=== PATIENT | male | born 1970 | race Caucasian/White ===

== ENCOUNTER 2022-06-29 16:12 | Observation (INO) | payer OTHER ==
[2022-06-29] MEDS ORDERED: Sodium Chloride 0.9% 1000 ML 1,000 ML IV STA (16:39)
[2022-06-29] MEDS ORDERED: Ativan 2 MG/1 ML VIAL IV ONE (16:39)
[2022-06-29] MEDS ORDERED: Zofran 4 MG/2 ML VIAL IV ONE (16:43)
[2022-06-29] MEDS ORDERED: Zofran 4 MG/2 ML VIAL ONE (16:52)
[2022-06-29] MEDS ORDERED: Ativan 2 MG/1 ML VIAL ONE (16:53)
[2022-06-29] MEDS ORDERED: Sodium Chloride 0.9% 1000 ML 1,000 ML ONE (16:53)
--- NOTE | 2022-06-29 17:09 | ERPHSYRPT ---
- History of Present Illness Time Seen by Provider: 06/29/22 16:16 Historian: patient Exam Limitations: no limitations Patient Subjective Stated Complaint: Swelling Triage Nursing Assessment: Patient brought into ED per EMS and transferred self to bed. Patient A+O X.3 Patient's skin pink, warm and dry. Patient's called EMS due to confusion, paranoia and swelling to BLE. Patient denies pain or discomfort. Patient has swelling to dre hands and BLE. Physician History: Patient originally called EMS today for meth use with chest pain. Admits to using meth this morning. Patient complained of chest pain, swelling to his . Therefore, EMS called. On my questioning, he does appear acutely confused. He intermittently answers questions correctly. He is alert and oriented once redirected. But easily spaces off. Most of history is provided by his . Timing/Duration: today Activities at Onset: other (Meth use) Quality: dullness Location: central Chest Pain Radiation: no radiation Severity of Pain-Max: mild Severity of Pain-Current: mild Modifying Factors: Improves With: nothing Associated Symptoms: palpitations Prior Chest Pain/Cardiac Workup: no prior chest pain Aspirin Treatment Today: no aspirin today Allergies/Adverse Reactions: Penicillins Allergy (Verified 06/29/22 16:20) Home Medications: Atorvastatin Calcium [Lipitor] 40 mg PO DAILY 01/07/13 [History] Clonazepam [Klonopin] 1 mg PO TID 01/07/13 [History] Diltiazem HCl Cd [Cardizem CD 120 MG] 120 mg PO DAILY 01/07/13 [History] Tizanidine HCl 4 mg [Zanaflex 4 MG] 4 mg PO TID PRN 01/07/13 [History] Diclofenac Sodium 75 mg PO DAILY 02/03/15 [History] Furosemide [Lasix] 80 mg PO DAILY 02/03/15 [History] Gabapentin [Neurontin 400 MG] 400 mg PO BID 02/03/15 [History] Hydrocodone/APAP 10/325 mg [Whitmer 10/325 MG Tablet] 1 tab PO Q4-6HPRN PRN 02/03/15 [History] Naproxen Sodium 500 mg PO PRN 02/03/15 [History] Potassium Chloride Tab* [Klor Con 10 MEQ] 10 meq PO DAILY 02/03/15 [History] Zolpidem Tartrate 10 mg PO 02/03/15 [History] Hx Tetanus, Diphtheria Vaccination/Date Given: Yes (2009) Hx Influenza Vaccination/Date Given: No Hx Pneumococcal Vaccination/Date Given: No Immunizations Up to Date: Yes Travel Risk - International Travel Have you traveled outside of the country in past 3 weeks: No - Coronavirus Screening Are you exhibiting any of the following symptoms?: No Close contact with a COVID-19 positive Pt in past 14-21 Days: No - Vaccine Status Have you recieved a Covid-19 vaccination: Yes 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: [employer] - Review of Systems Constitutional: No Fever, No Chills Eyes: No Symptoms Ears, Nose, & Throat: No Symptoms Respiratory: No Cough, No Dyspnea Cardiac: Chest Pain (Swelling of the legs, 2+ edema lower extremities), No Edema, No Syncope Abdominal/Gastrointestinal: No Abdominal Pain, No Nausea, No Vomiting, No Diarrhea Genitourinary Symptoms: No Dysuria Musculoskeletal: No Back Pain, No Neck Pain Skin: No Rash Neurological: No Dizziness, No Focal Weakness, No Sensory Changes Psychological: No Symptoms Endocrine: No Symptoms All Other Systems: Reviewed and Negative - Past Medical History Pertinent Past Medical History: Yes Neurological History: No Pertinent History ENT History: No Pertinent History Cardiac History: Congestive Heart Failure, High Cholesterol, Hypertension Respiratory History: No Pertinent History Endocrine Medical History: No Pertinent History Musculoskeletal History: Degenerative Disk Disease GI Medical History: Other History: Other Psycho-Social History: Anxiety Other Medical History: SKIN CANCER - Past Surgical History Past Surgical History: Yes Neuro Surgical History: No Pertinent History Cardiac: No Pertinent History Respiratory: No Pertinent History Genitourinary: Other Musculoskeletal: No Pertinent History Male Surgical History: No Pertinent History Other Surgical History: cancer left arm - Social History Smoking Status: Never smoker Exposure to second hand smoke: Yes Drug Use: methamphetamines Patient Lives Alone: No - Nursing Vital Signs Nursing Vital Signs: Initial Vital Signs Temperature 98.5 F 06/29/22 16:21 Pulse Rate 108 H 06/29/22 16:21 Respiratory Rate 20 06/29/22 16:21 Blood Pressure 145/96 06/29/22 16:21 O2 Sat by Pulse Oximetry 98 06/29/22 16:21 Pain Scale Pain Intensity 0 - Physical Exam General Appearance: no apparent distress, alert, other (Patient alert but appears to have acute delirium. He is redirectable, answers questions upon redirection.) Eye Exam: PERRL/EOMI, eyes nml inspection Ears, Nose, Throat Exam: normal ENT inspection, moist mucous membranes Neck Exam: normal inspection, non-tender, supple, full range of motion Respiratory Exam: normal breath sounds, lungs clear, No respiratory distress Cardiovascular Exam: regular rate/rhythm, normal heart sounds Gastrointestinal/Abdomen Exam: soft, No tenderness, No mass Back Exam: normal inspection, No CVA tenderness, No vertebral tenderness Extremity Exam: normal inspection, normal range of motion, pedal edema (2+ pitting edema lower extremities) Neurologic Exam: alert, oriented x 3, cooperative, normal mood/affect, sensation nml, No motor deficits Skin Exam: normal color, warm, dry SpO2: 98 - Course Nursing assessment & vital signs reviewed: Yes EKG Interpreted by Me: Sinus Rhythm Ordered Tests: Active Orders 24 hr Category Date Time Status EKG-ER Only STAT Care 06/29/22 16:39 Active IV Insertion STAT Care 06/29/22 16:39 Active CHEST 1 VIEW (PORTABLE) Stat Exams 06/29/22 16:42 Taken HEAD WITHOUT CONTRAST [CT] Stat Exams 06/29/22 17:41 Taken ACETAMINOPHEN Stat Lab 06/29/22 17:12 Completed CBC W DIFF Stat Lab 06/29/22 17:10 Completed CK-Creatinine Phosphokinase Stat Lab 06/29/22 17:12 Completed CMP Stat Lab 06/29/22 17:10 Completed ETHYL ALCOHOL Stat Lab 06/29/22 17:10 Completed FLU A/B + COVID ANTIGEN Stat Lab 06/29/22 17:41 Ordered LIPASE Stat Lab 06/29/22 17:10 Completed MAGNESIUM Stat Lab 06/29/22 17:10 Completed NT PRO BNP Stat Lab 06/29/22 17:10 Completed SALICYLATE Stat Lab 06/29/22 17:12 Completed TROPONIN Q4H Lab 06/29/22 17:10 Completed TROPONIN Q4H Lab 06/29/22 20:45 Ordered TROPONIN Q4H Lab 06/30/22 00:45 Ordered UA W/RFX CULTURE Stat Lab 06/29/22 16:59 Completed Urine Triage Profile Stat Lab 06/29/22 16:50 Completed Medication Summary Discontinued Medications Generic Name Dose Route Start Last Admin Trade Name Freq PRN Reason Stop Dose Admin Sodium Chloride 1,000 mls @ 999 mls/hr 06/29/22 16:39 06/29/22 18:09 Sodium Chloride 0.9% 1000 Ml IV 06/29/22 17:39 Infused .Q1H1M STA Infusion Sodium Chloride Confirm 06/29/22 16:53 Sodium Chloride 0.9% 1000 Ml Administered 06/29/22 16:54 Dose 1,000 mls @ ud .ROUTE .STK-MED ONE Lorazepam 2 mg 06/29/22 16:39 06/29/22 16:54 Lorazepam 2 Mg/1 Ml 2 Mg Vial IV 06/29/22 16:40 2 mg STAT ONE Administration Lorazepam Confirm 06/29/22 16:53 Lorazepam 2 Mg/1 Ml 2 Mg Vial Administered 06/29/22 16:54 Dose 2 mg .ROUTE .STK-MED ONE Ondansetron HCl 8 mg 06/29/22 16:43 06/29/22 16:54 Ondansetron Hcl 4 Mg/2 Ml Vial IV 06/29/22 16:44 8 mg STAT ONE Administration Ondansetron HCl Confirm 06/29/22 16:52 Ondansetron Hcl 4 Mg/2 Ml Vial Administered 06/29/22 16:53 Dose 8 mg .ROUTE .STK-MED ONE Lab/Rad Data: Laboratory Result Diagrams 06/29/22 17:10 06/29/22 17:10 Laboratory Results 06/29/22 06/29/22 06/29/22 Range/Units 17:12 17:10 17:10 WBC (4.0-10.5) x10^3/uL RBC (4.1-5.6) x10^6/uL Hgb (12.5-18.0) g/dL Hct (42-50) % MCV (78-100) fL MCH (26-32) pg MCHC (32-36) g/dL RDW (11.5-14.0) % Plt Count (150-450) x10^3/uL MPV (7.5-11.0) fL Gran % (36.0-66.0) % Immature Gran % (Auto) (0.00-0.4) % Nucleat RBC Rel Count (0.00-0.1) % Eos # (Auto) (0-0.5) x10^3/uL Immature Gran # (Auto) (0.00-0.03) x10^3u/L Absolute Lymphs (auto) (1.0-4.6) x10^3/uL Absolute Monos (auto) (0.0-1.3) x10^3/uL Absolute Nucleated RBC (0.00-0.01) x10^3u/L Lymphocytes % (24.0-44.0) % Monocytes % (0.0-12.0) % Eosinophils % (0.00-5.0) % Basophils % (0.0-0.4) % Absolute Granulocytes (1.4-6.9) x10^3/uL Basophils # (0-0.4) x10^3/uL Sodium (137-145) mmol/L Potassium (3.5-5.1) mmol/L Chloride (98-107) mmol/L Carbon Dioxide (22-30) mmol/L Anion Gap (5-15) MEQ/L BUN (9-20) mg/dL Creatinine (0.66-1.25) mg/dL Estimated GFR ML/MIN Glucose (74-106) mg/dL Calcium (8.4-10.2) mg/dL Magnesium (1.6-2.3) mg/dL Total Bilirubin (0.2-1.3) mg/dL AST (17-59) U/L ALT (0-50) U/L Alkaline Phosphatase (38-126) U/L Ammonia 21 (9-30) umol/L Creatine Kinase 1052 H (55-170) U/L Troponin I 0.017 (0.000-0.034) ng/mL NT-Pro-B Natriuret Pep (0-900) pg/mL Serum Total Protein (6.3-8.2) g/dL Albumin (3.5-5.0) g/dL Lipase (23-300) U/L Urinalys Dipstick Clnc Urine Color (YELLOW) Urine Appearance (CLEAR) Urine pH (5-6) Ur Specific [place] (1.005-1.025) POC Urine Protein Conf (Negative) Urine Ketones (NEGATIVE) Urine Nitrite (NEGATIVE) Urine Bilirubin (NEGATIVE) Urine Urobilinogen (0-1) mg/dL Urine Leukocytes (NEGATIVE) Urine WBC (Auto) (0-5) /HPF Urine RBC (Auto) (0-2) /HPF U Epithel Cells (Auto) (FEW) /HPF Urine Bacteria (Auto) (NEGATIVE) /HPF Urine RBC (0-5) Lebron/ul Urine Mucus (Auto) (NEGATIVE) /HPF Ur Culture Indicated? Urine Glucose (NEGATIVE) mg/dL Salicylates < 1.0 L (2-20) mg/dL Urine Opiates Level (NEGATIVE) Ur Methadone (NEGATIVE) Acetaminophen < 10 L (10-30) ug/ml Urine Barbiturates (NEGATIVE) Ur Phencyclidine (PCP) (NEGATIVE) Urine Amphetamine (NEGATIVE) U Benzodiazepine Level (NEGATIVE) Urine Marijuana (THC) (NEGATIVE) Ethyl Alcohol (0-10) mg/dL 06/29/22 06/29/22 06/29/22 Range/Units 17:10 17:10 16:59 WBC 9.1 (4.0-10.5) x10^3/uL RBC 4.39 (4.1-5.6) x10^6/uL Hgb 12.8 (12.5-18.0) g/dL Hct 38.9 L (42-50) % MCV 88.6 (78-100) fL MCH 29.2 (26-32) pg MCHC 32.9 (32-36) g/dL RDW 13.1 (11.5-14.0) % Plt Count 335 (150-450) x10^3/uL MPV 9.3 (7.5-11.0) fL Gran % 72.8 H (36.0-66.0) % Immature Gran % (Auto) 0.3 (0.00-0.4) % Nucleat RBC Rel Count 0.0 (0.00-0.1) % Eos # (Auto) 0.13 (0-0.5) x10^3/uL Immature Gran # (Auto) 0.03 (0.00-0.03) x10^3u/L Absolute Lymphs (auto) 1.27 (1.0-4.6) x10^3/uL Absolute Monos (auto) 0.99 (0.0-1.3) x10^3/uL Absolute Nucleated RBC 0.00 (0.00-0.01) x10^3u/L Lymphocytes % 13.9 L (24.0-44.0) % Monocytes % 10.9 (0.0-12.0) % Eosinophils % 1.4 (0.00-5.0) % Basophils % 0.7 (0.0-0.4) % Absolute Granulocytes 6.63 (1.4-6.9) x10^3/uL Basophils # 0.06 (0-0.4) x10^3/uL Sodium 138 (137-145) mmol/L Potassium 3.8 (3.5-5.1) mmol/L Chloride 103 (98-107) mmol/L Carbon Dioxide 26 (22-30) mmol/L Anion Gap 12.6 (5-15) MEQ/L BUN 16 (9-20) mg/dL Creatinine 1.27 H (0.66-1.25) mg/dL Estimated GFR > 60.0 ML/MIN Glucose 112 H (74-106) mg/dL Calcium 9.4 (8.4-10.2) mg/dL Magnesium 2.2 (1.6-2.3) mg/dL Total Bilirubin 0.60 (0.2-1.3) mg/dL AST 45 (17-59) U/L ALT 36 (0-50) U/L Alkaline Phosphatase 75 (38-126) U/L Ammonia (9-30) umol/L Creatine Kinase (55-170) U/L Troponin I (0.000-0.034) ng/mL NT-Pro-B Natriuret Pep 236 (0-900) pg/mL Serum Total Protein 7.5 (6.3-8.2) g/dL Albumin 4.3 (3.5-5.0) g/dL Lipase 43 (23-300) U/L Urinalys Dipstick Clnc MAIN LAB Urine Color YELLOW (YELLOW) Urine Appearance CLEAR (CLEAR) Urine pH 5.5 (5-6) Ur Specific [place] >=1.030 (1.005-1.025) POC Urine Protein Conf 30 (Negative) Urine Ketones NEGATIVE (NEGATIVE) Urine Nitrite NEGATIVE (NEGATIVE) Urine Bilirubin NEGATIVE (NEGATIVE) Urine Urobilinogen 0.2 (0-1) mg/dL Urine Leukocytes NEGATIVE (NEGATIVE) Urine WBC (Auto) 0-2 (0-5) /HPF Urine RBC (Auto) NONE (0-2) /HPF U Epithel Cells (Auto) NONE (FEW) /HPF Urine Bacteria (Auto) NONE (NEGATIVE) /HPF Urine RBC NEGATIVE (0-5) Lebron/ul Urine Mucus (Auto) SLIGHT (NEGATIVE) /HPF Ur Culture Indicated? NO Urine Glucose NEGATIVE (NEGATIVE) mg/dL Salicylates (2-20) mg/dL Urine Opiates Level (NEGATIVE) Ur Methadone (NEGATIVE) Acetaminophen (10-30) ug/ml Urine Barbiturates (NEGATIVE) Ur Phencyclidine (PCP) (NEGATIVE) Urine Amphetamine (NEGATIVE) U Benzodiazepine Level (NEGATIVE) Urine Marijuana (THC) (NEGATIVE) Ethyl Alcohol < 10 (0-10) mg/dL 06/29/22 Range/Units 16:50 WBC (4.0-10.5) x10^3/uL RBC (4.1-5.6) x10^6/uL Hgb (12.5-18.0) g/dL Hct (42-50) % MCV (78-100) fL MCH (26-32) pg MCHC (32-36) g/dL RDW (11.5-14.0) % Plt Count (150-450) x10^3/uL MPV (7.5-11.0) fL Gran % (36.0-66.0) % Immature Gran % (Auto) (0.00-0.4) % Nucleat RBC Rel Count (0.00-0.1) % Eos # (Auto) (0-0.5) x10^3/uL Immature Gran # (Auto) (0.00-0.03) x10^3u/L Absolute Lymphs (auto) (1.0-4.6) x10^3/uL Absolute Monos (auto) (0.0-1.3) x10^3/uL Absolute Nucleated RBC (0.00-0.01) x10^3u/L Lymphocytes % (24.0-44.0) % Monocytes % (0.0-12.0) % Eosinophils % (0.00-5.0) % Basophils % (0.0-0.4) % Absolute Granulocytes (1.4-6.9) x10^3/uL Basophils # (0-0.4) x10^3/uL Sodium (137-145) mmol/L Potassium (3.5-5.1) mmol/L Chloride (98-107) mmol/L Carbon Dioxide (22-30) mmol/L Anion Gap (5-15) MEQ/L BUN (9-20) mg/dL Creatinine (0.66-1.25) mg/dL Estimated GFR ML/MIN Glucose (74-106) mg/dL Calcium (8.4-10.2) mg/dL Magnesium (1.6-2.3) mg/dL Total Bilirubin (0.2-1.3) mg/dL AST (17-59) U/L ALT (0-50) U/L Alkaline Phosphatase (38-126) U/L Ammonia (9-30) umol/L Creatine Kinase (55-170) U/L Troponin I (0.000-0.034) ng/mL NT-Pro-B Natriuret Pep (0-900) pg/mL Serum Total Protein (6.3-8.2) g/dL Albumin (3.5-5.0) g/dL Lipase (23-300) U/L Urinalys Dipstick Clnc Urine Color (YELLOW) Urine Appearance (CLEAR) Urine pH (5-6) Ur Specific [place] (1.005-1.025) POC Urine Protein Conf (Negative) Urine Ketones (NEGATIVE) Urine Nitrite (NEGATIVE) Urine Bilirubin (NEGATIVE) Urine Urobilinogen (0-1) mg/dL Urine Leukocytes (NEGATIVE) Urine WBC (Auto) (0-5) /HPF Urine RBC (Auto) (0-2) /HPF U Epithel Cells (Auto) (FEW) /HPF Urine Bacteria (Auto) (NEGATIVE) /HPF Urine RBC (0-5) Lebron/ul Urine Mucus (Auto) (NEGATIVE) /HPF Ur Culture Indicated? Urine Glucose (NEGATIVE) mg/dL Salicylates (2-20) mg/dL Urine Opiates Level NEGATIVE (NEGATIVE) Ur Methadone NEGATIVE (NEGATIVE) Acetaminophen (10-30) ug/ml Urine Barbiturates NEGATIVE (NEGATIVE) Ur Phencyclidine (PCP) NEGATIVE (NEGATIVE) Urine Amphetamine POSITIVE (NEGATIVE) U Benzodiazepine Level NEGATIVE (NEGATIVE) Urine Marijuana (THC) NEGATIVE (NEGATIVE) Ethyl Alcohol (0-10) mg/dL - Progress Progress: improved Air Movement: good Progress Note: 06/29/22 17:08 Plan for full work-up here. This will include basic labs, chest x-ray, IV Ativan. Will obtain EKG, troponin. Will consider head CT, CTA chest abdomen pelvis looking for dissection given his meth use, acute delirium. 06/29/22 18:19 Handoff of care to Dr. Contreras. He will follow-up on all lab reports, reexamine the patient, appropriate disposition per these results. Patient most likely need a head CT follow-up and admission to the hospital. This is for his delirium. - Departure Departure Disposition: Observation Clinical Impression: Acute delirium Condition: Good Critical Care Time: No Referrals: DIAZ RAMIREZ [Primary Care Provider] - Follow up/PCP as directed
[2022-06-29 17:16] LABS: Absolute Neutrophil Ct (ANC) 6.63 x10^3/uL (1.4-6.9); Basophil (Absolute #) 0.06 x10^3/uL (0-0.4); Eosinophil % 1.4 % (0.00-5.0); Eosinophil (Absolute #) 0.13 x10^3/uL (0-0.5); Hematocrit 38.9 % (42-50); Hemoglobin 12.8 g/dL (12.5-18.0); Lymphocyte (Absolute #) 1.27 x10^3/uL (1.0-4.6); Lymphocytes % 13.9 % (24.0-44.0); Mean Cell Volume 88.6 fL (78-100); Mean Corpuscular Hemoglobin 29.2 pg (26-32); Mean Corpuscular Hgb Concent. 32.9 g/dL (32-36); Mean Platelet Volume 9.3 fL (7.5-11.0); Monocyte (Absolute #) 0.99 x10^3/uL (0.0-1.3); Monocytes % 10.9 % (0.0-12.0); Neutrophil % 72.8 % (36.0-66.0); Platelet Count 335 x10^3/uL (150-450); Red Blood Count 4.39 x10^6/uL (4.1-5.6); Red Cell Distribution Width 13.1 % (11.5-14.0); White Blood Count 9.1 x10^3/uL (4.0-10.5)
[2022-06-29 17:24] LABS: Mucus SLIGHT /HPF (NEGATIVE); WBC 0-2 /HPF (0-5)
[2022-06-29 17:25] LABS: Appearance CLEAR (CLEAR); Bilirubin NEGATIVE (NEGATIVE); Dipstick done @ ? MAIN LAB; Glucose NEGATIVE (NEGATIVE); Ketones NEGATIVE (NEGATIVE); Nitrite NEGATIVE (NEGATIVE); Ph 5.5 (5-6); Protein,Urine Dip 30 (Negative); RBC NEGATIVE Ery/ul (0-5); Specific Gravity >=1.030 (1.005-1.025); Urobilinogen 0.2 mg/dL (0-1)
[2022-06-29 17:26] LABS: Urine Cultured Indicated? NO
[2022-06-29 17:28] LABS: ACETAMINOPHEN < 10 ug/ml (10-30); CK-Creatinine Phosphokinase 1052 U/L (55-170); SALICYLATE < 1.0 mg/dL (2-20)
[2022-06-29 17:31] LABS: ALBUMIN 4.3 g/dL (3.5-5.0); ALKALINE PHOSPHATASE 75 U/L (38-126); ANION GAP 12.6 MEQ/L (5-15); BLOOD UREA NITROGEN 16 mg/dL (9-20); CHLORIDE 103 mmol/L (98-107); Calcium 9.4 mg/dL (8.4-10.2); Carbon Dioxide 26 mmol/L (22-30); Creatinine 1 1.27 mg/dL (0.66-1.25); EST GLOMERULAR FILTRATION RATE > 60.0 ML/MIN; ETHYL ALCOHOL < 10 mg/dL (0-10); Glucose 112 mg/dL (74-106); LIPASE 43 U/L (23-300); MAGNESIUM 2.2 mg/dL (1.6-2.3); NT PRO BNP 236 pg/mL (0-900); Potassium 3.8 mmol/L (3.5-5.1); SGOT/AST 45 U/L (17-59); SGPT/ALT 36 U/L (0-50); SODIUM 138 mmol/L (137-145); Total Protein 7.5 g/dL (6.3-8.2)
[2022-06-29 17:35] LABS: Barbiturate,Urine NEGATIVE (NEGATIVE); Benzodiazepine,Urine NEGATIVE (NEGATIVE); Methadone,Urine NEGATIVE (NEGATIVE); Opiate,Urine NEGATIVE (NEGATIVE); PCP,Urine NEGATIVE (NEGATIVE); THC,Urine NEGATIVE (NEGATIVE)
[2022-06-29 18:04] LABS: Amphetamine,Urine POSITIVE (NEGATIVE)
--- NOTE | 2022-06-29 20:45 | XRAY ---
Indication: Chest pain and swelling in extremities. History Parkinson's and CHF. Comparison: February 03, 2015 Portable chest remains clear. Heart not enlarged. Bony thorax intact. No new/acute findings.
--- NOTE | 2022-06-29 20:47 | XRAY ---
Indication: Bilateral lower extremity edema. DVT. 2-dimensional sonogram and color Doppler imaging of the deep venous vessels of the left and right leg performed. Comparison: None No thrombus seen in the examined deep venous vessels of the left and right leg including greater saphenous vein. Veins demonstrate normal compressibility. Venous waveforms are normal with and without augmentation. Impression: Left and right legs negative for DVT. Comment: Preliminary report was given.
--- NOTE | 2022-06-29 20:47 | XRAY ---
Indication: Acute delirium and chest pain after using drugs. Multiple contiguous axial images obtained through the head without contrast. Comparison: None Normal appearing brain parenchyma, ventricles, and bony calvarium for patient's age. Paranasal sinuses and mastoid air cells are clear. Impression: Normal CT head without contrast exam. Comment: Preliminary interpretation made by [facility]. No critical discrepancy.
[2022-06-29] MEDS ORDERED: HUMULIN R SQ PRN (21:56)
[2022-06-29] MEDS ORDERED: DUONEB 0.5-3 MG/3 ml Neb IH PRN (21:56)
[2022-06-29] MEDS ORDERED: Zofran 4 MG/2 ML VIAL IV PRN (21:56)
[2022-06-29] MEDS ORDERED: TYLENOL 325 MG PO PRN (21:56)
[2022-06-29] MEDS: Sodium Chloride 0.9% 1000 ML 1,000 ML IV SCH (23:03)
[2022-06-29] MEDS: Pepcid 20 MG VIAL IV SCH (23:12)
[2022-06-30] MEDS: Sodium Chloride 0.9% 1000 ML 1,000 ML IV SCH ×5 (02:51→15:38)
[2022-06-30 05:03] LABS: Absolute Neutrophil Ct (ANC) 3.34 x10^3/uL (1.4-6.9); Basophil (Absolute #) 0.04 x10^3/uL (0-0.4); Eosinophil % 4.2 % (0.00-5.0); Eosinophil (Absolute #) 0.23 x10^3/uL (0-0.5); Hematocrit 37.8 % (42-50); Hemoglobin 11.9 g/dL (12.5-18.0); Lymphocytes % 21.9 % (24.0-44.0); Mean Cell Volume 91.3 fL (78-100); Mean Corpuscular Hemoglobin 28.7 pg (26-32); Mean Corpuscular Hgb Concent. 31.5 g/dL (32-36); Mean Platelet Volume 9.3 fL (7.5-11.0); Monocyte (Absolute #) 0.65 x10^3/uL (0.0-1.3); Monocytes % 11.9 % (0.0-12.0); Neutrophil % 61.1 % (36.0-66.0); Platelet Count 243 x10^3/uL (150-450); Red Blood Count 4.14 x10^6/uL (4.1-5.6); Red Cell Distribution Width 13.2 % (11.5-14.0); White Blood Count 5.5 x10^3/uL (4.0-10.5)
[2022-06-30 05:32] LABS: ALBUMIN 3.3 g/dL (3.5-5.0); ALKALINE PHOSPHATASE 57 U/L (38-126); ANION GAP 6.3 MEQ/L (5-15); BLOOD UREA NITROGEN 15 mg/dL (9-20); CHLORIDE 107 mmol/L (98-107); Calcium 8.5 mg/dL (8.4-10.2); Carbon Dioxide 29 mmol/L (22-30); Creatinine 1 1.21 mg/dL (0.66-1.25); EST GLOMERULAR FILTRATION RATE > 60.0 ML/MIN; Glucose 91 mg/dL (74-106); SGOT/AST 39 U/L (17-59); SGPT/ALT 33 U/L (0-50); SODIUM 138 mmol/L (137-145); Total Protein 6.1 g/dL (6.3-8.2)
[2022-06-30] MEDS: Pepcid 20 MG VIAL IV SCH ×2 (10:45→21:29)
[2022-06-30] MEDS ORDERED: Cyclobenzaprine 10 MG PO PRN (12:35)
[2022-06-30] MEDS ORDERED: Cardizem CD PO SCH (13:00)
[2022-06-30] MEDS ORDERED: Lasix 40 MG PO SCH (13:00)
[2022-06-30] MEDS ORDERED: MAG-OX 400 PO SCH (13:00)
[2022-06-30] MEDS: Aldactone 25 MG PO SCH (14:04)
[2022-06-30] MEDS ORDERED: ULTRAM 50 MG PO PRN (14:05)
[2022-06-30] MEDS ORDERED: Klor Con PO SCH (15:00)
[2022-06-30] MEDS: Lasix 40 MG/4 ML IV SCH (15:00)
[2022-06-30] MEDS: Klor Con PO SCH ×2 (15:38→21:23)
[2022-06-30] MEDS: ENOXAPARIN SODIUM SQ SCH (15:38)
--- NOTE | 2022-06-30 16:24 | PCM.HP ---
History of Present Illness - Chief Complaint Chief Complaint: ACUTE DELIRIUM History of Present Illness: is a 51 year old male pt (hx seeing Dr. Mathew) who was admitted through ER with chest pain and methamphetamine use. called EMS and pt was brought to ER with confusion, paranoia, an dBLE edema. in ER, he was alert and oriented after being redirected by staff. Pt cannot remember any of this. CT head normal, CXR normal, and venous doppler (LE) neg for DVT. Pt is currently alert and oriented. He is a poor historian. He is noncompliant with meds; says he takes the meds on his list only sometimes. He does c/o LE edema which is longstanding. Is complaining of testicular swelling and pain. Foot pain related the chronic LE edema. He has seen Dr. Vicente int he past, but didn't f/u. Tells RN he is not interested in sobriety, but his tells me they are not going to use meth anymore. Troponins were neg x 3. He c/o chest tightness currently, L&R chest, nonradiating, 04/26, intermittent. Occ palpitation. +N, +diaphoresis. Is worse when he is feeling irritated. Denies TOB, EtOH, or other drugs. - Review of Systems Constitutional: Weakness (in legs, new) Respiratory: Short Of Breath (> 1 yr) Abdominal/Gastrointestinal: Abdominal Pain (LLQ, recurrent) Neurological: Dizziness (lightheaded occ), Other (feels like the L side of his brain "shuts down" - makes it hard to think, he's wobbly and irritable. Denies dz or staring episodes.) Psychological: Depression, No Suicidal Ideations (had a suicide attempt 2 yrs ago. States an antidepressant made him worse. was on depakote in the past.) Medications & Allergies Home Medications: Home Medication List Furosemide [Lasix] 40 mg PO TID 02/03/15 [History Confirmed 06/29/22] Potassium Chloride Tab* [Klor Con 10 MEQ] 10 meq PO TID 02/03/15 [History Confirmed 06/29/22] Atorvastatin Calcium 20 mg PO HS 06/29/22 [History Confirmed 06/29/22] Cyclobenzaprine HCl 10 mg [Cyclobenzaprine 10 MG] 10 mg PO TIDPRN PRN 06/29/22 [History Confirmed 06/29/22] Magnesium Oxide 400 mg [Mag-Ox 400] 400 mg PO DAILY 06/29/22 [History Confirmed 06/29/22] Omeprazole 20 mg PO DAILY 06/29/22 [History Confirmed 06/29/22] Spironolactone 25 mg [Aldactone 25 MG] 25 mg PO BID 06/29/22 [History Confirmed 06/29/22] dilTIAZem HCl [Diltiazem 24Hr Cd] 240 mg PO DAILY 06/29/22 [History Confirmed 06/29/22] Allergies/Adverse Reactions: Allergies Allergy/AdvReac Type Severity Reaction Status Date / Time Penicillins Allergy Verified 06/29/22 16:20 - Past Medical History Past Medical History: Yes Neurological History: No Pertinent History ENT History: No Pertinent History Cardiac History: Congestive Heart Failure, High Cholesterol, Hypertension Respiratory History: No Pertinent History Endocrine Medical History: No Pertinent History Musculoskelatal History: Degenerative Disk Disease GI Medical History: Other History: Other Pyscho-Social History: Anxiety Male Reproductive Disorders: No Pertinent History Comment: SKIN CANCER - Past Surgical History Past Surgical History: Yes Neuro Surgical History: No Pertinent History Cardiac History: No Pertinent History Respiratory Surgery: No Pertinent History GI Surgical History: No Pertinent History Genitourinary Surgical Hx: Other Musculskeletal Surgical Hx: No Pertinent History Male Surgical History: No Pertinent History Other Surgical History: cancer left arm - Social History Smoking Status: Never smoker Exposure to second hand smoke: No Alcohol: None Drug Use: methamphetamines - Physical Exam Vital Signs: Vital Signs - 24 hr Temp Pulse Resp BP BP Pulse Ox 06/30/22 12:00 99.1 F 92 H 26 H 145/82 98 06/30/22 11:26 97 H 06/30/22 08:00 98.0 F 84 23 126/84 96 06/30/22 04:00 97.3 F 63 18 90/55 96 06/30/22 00:27 98.0 F 80 21 103/63 100 06/29/22 23:23 86 06/29/22 22:19 98.0 F 86 24 139/82 100 06/29/22 22:10 87 20 99 06/29/22 21:05 90 22 85/48 98 06/29/22 20:08 90 22 117/69 98 06/29/22 19:38 92 H 110/63 98 06/29/22 18:20 98 06/29/22 18:00 93 H 16 118/66 96 06/29/22 17:12 103 H 20 139/84 94 L 06/29/22 16:21 98.5 F 108 H 20 145/96 98 General Appearance: no apparent distress, alert Neurologic Exam: oriented x 3, cooperative Eye Exam: eyes nml inspection Ears, Nose, Throat Exam: moist mucous membranes Neck Exam: normal inspection, non-tender, No lymphadenopathy, No thyromegaly Respiratory Exam: normal breath sounds, lungs clear, other (chest nttp), No diminished breath sounds, No rhonchi, No wheezing Cardiovascular Exam: regular rate/rhythm, normal heart sounds, No murmur Gastrointestinal/Abdomen Exam: soft, normal bowel sounds, No tenderness, No distention, No mass, No guarding, No rebound Male Genitalia Exam: other (testicles are somewhat edematous bilat. There is an approx 3x4cm firm mass superior to L testicle, nttp, no erythema) Back Exam: normal inspection, No rash Extremity Exam: pedal edema, swelling (3+ pretibial edema) Skin Exam: normal color, warm, dry, No rash Results - Labs Lab/Micro Results: Lab Results-Last 24 Hours 06/29/22 06/29/22 06/29/22 Range/Units 16:50 16:59 17:10 WBC 9.1 (4.0-10.5) x10^3/uL RBC 4.39 (4.1-5.6) x10^6/uL Hgb 12.8 (12.5-18.0) g/dL Hct 38.9 L (42-50) % MCV 88.6 (78-100) fL MCH 29.2 (26-32) pg MCHC 32.9 (32-36) g/dL RDW 13.1 (11.5-14.0) % Plt Count 335 (150-450) x10^3/uL MPV 9.3 (7.5-11.0) fL Gran % 72.8 H (36.0-66.0) % Immature Gran % (Auto) 0.3 (0.00-0.4) % Nucleat RBC Rel Count 0.0 (0.00-0.1) % Eos # (Auto) 0.13 (0-0.5) x10^3/uL Immature Gran # (Auto) 0.03 (0.00-0.03) x10^3u/L Absolute Lymphs (auto) 1.27 (1.0-4.6) x10^3/uL Absolute Monos (auto) 0.99 (0.0-1.3) x10^3/uL Absolute Nucleated RBC 0.00 (0.00-0.01) x10^3u/L Lymphocytes % 13.9 L (24.0-44.0) % Monocytes % 10.9 (0.0-12.0) % Eosinophils % 1.4 (0.00-5.0) % Basophils % 0.7 (0.0-0.4) % Absolute Granulocytes 6.63 (1.4-6.9) x10^3/uL Basophils # 0.06 (0-0.4) x10^3/uL Sodium (137-145) mmol/L Potassium (3.5-5.1) mmol/L Chloride (98-107) mmol/L Carbon Dioxide (22-30) mmol/L Anion Gap (5-15) MEQ/L BUN (9-20) mg/dL Creatinine (0.66-1.25) mg/dL Estimated GFR ML/MIN Glucose (74-106) mg/dL POC Glucometer (74 to 106) mg/dL Hemoglobin A1c (4.5-6.0) % Lactic Acid (0.4-2.0) Calcium (8.4-10.2) mg/dL Magnesium (1.6-2.3) mg/dL Total Bilirubin (0.2-1.3) mg/dL AST (17-59) U/L ALT (0-50) U/L Alkaline Phosphatase (38-126) U/L Ammonia (9-30) umol/L Creatine Kinase (55-170) U/L Troponin I (0.000-0.034) ng/mL NT-Pro-B Natriuret Pep (0-900) pg/mL Serum Total Protein (6.3-8.2) g/dL Albumin (3.5-5.0) g/dL Lipase (23-300) U/L Urinalys Dipstick Clnc MAIN LAB Urine Color YELLOW (YELLOW) Urine Appearance CLEAR (CLEAR) Urine pH 5.5 (5-6) Ur Specific [place] >=1.030 (1.005-1.025) POC Urine Protein Conf 30 (Negative) Urine Ketones NEGATIVE (NEGATIVE) Urine Nitrite NEGATIVE (NEGATIVE) Urine Bilirubin NEGATIVE (NEGATIVE) Urine Urobilinogen 0.2 (0-1) mg/dL Urine Leukocytes NEGATIVE (NEGATIVE) Urine WBC (Auto) 0-2 (0-5) /HPF Urine RBC (Auto) NONE (0-2) /HPF U Epithel Cells (Auto) NONE (FEW) /HPF Urine Bacteria (Auto) NONE (NEGATIVE) /HPF Urine RBC NEGATIVE (0-5) Lebron/ul Urine Mucus (Auto) SLIGHT (NEGATIVE) /HPF Ur Culture Indicated? NO Urine Glucose NEGATIVE (NEGATIVE) mg/dL Salicylates (2-20) mg/dL Urine Opiates Level NEGATIVE (NEGATIVE) Ur Methadone NEGATIVE (NEGATIVE) Acetaminophen (10-30) ug/ml Urine Barbiturates NEGATIVE (NEGATIVE) Ur Phencyclidine (PCP) NEGATIVE (NEGATIVE) Urine Amphetamine POSITIVE (NEGATIVE) U Benzodiazepine Level NEGATIVE (NEGATIVE) Urine Marijuana (THC) NEGATIVE (NEGATIVE) Ethyl Alcohol (0-10) mg/dL Influenza Type A Ag (NEGATIVE) Influenza Type B Ag (NEGATIVE) SARS-CoV-2 Antigen (NEGATIVE) 06/29/22 06/29/22 06/29/22 Range/Units 17:10 17:10 17:10 WBC (4.0-10.5) x10^3/uL RBC (4.1-5.6) x10^6/uL Hgb (12.5-18.0) g/dL Hct (42-50) % MCV (78-100) fL MCH (26-32) pg MCHC (32-36) g/dL RDW (11.5-14.0) % Plt Count (150-450) x10^3/uL MPV (7.5-11.0) fL Gran % (36.0-66.0) % Immature Gran % (Auto) (0.00-0.4) % Nucleat RBC Rel Count (0.00-0.1) % Eos # (Auto) (0-0.5) x10^3/uL Immature Gran # (Auto) (0.00-0.03) x10^3u/L Absolute Lymphs (auto) (1.0-4.6) x10^3/uL Absolute Monos (auto) (0.0-1.3) x10^3/uL Absolute Nucleated RBC (0.00-0.01) x10^3u/L Lymphocytes % (24.0-44.0) % Monocytes % (0.0-12.0) % Eosinophils % (0.00-5.0) % Basophils % (0.0-0.4) % Absolute Granulocytes (1.4-6.9) x10^3/uL Basophils # (0-0.4) x10^3/uL Sodium 138 (137-145) mmol/L Potassium 3.8 (3.5-5.1) mmol/L Chloride 103 (98-107) mmol/L Carbon Dioxide 26 (22-30) mmol/L Anion Gap 12.6 (5-15) MEQ/L BUN 16 (9-20) mg/dL Creatinine 1.27 H (0.66-1.25) mg/dL Estimated GFR > 60.0 ML/MIN Glucose 112 H (74-106) mg/dL POC Glucometer (74 to 106) mg/dL Hemoglobin A1c (4.5-6.0) % Lactic Acid (0.4-2.0) Calcium 9.4 (8.4-10.2) mg/dL Magnesium 2.2 (1.6-2.3) mg/dL Total Bilirubin 0.60 (0.2-1.3) mg/dL AST 45 (17-59) U/L ALT 36 (0-50) U/L Alkaline Phosphatase 75 (38-126) U/L Ammonia 21 (9-30) umol/L Creatine Kinase (55-170) U/L Troponin I 0.017 (0.000-0.034) ng/mL NT-Pro-B Natriuret Pep 236 (0-900) pg/mL Serum Total Protein 7.5 (6.3-8.2) g/dL Albumin 4.3 (3.5-5.0) g/dL Lipase 43 (23-300) U/L Urinalys Dipstick Clnc Urine Color (YELLOW) Urine Appearance (CLEAR) Urine pH (5-6) Ur Specific [place] (1.005-1.025) POC Urine Protein Conf (Negative) Urine Ketones (NEGATIVE) Urine Nitrite (NEGATIVE) Urine Bilirubin (NEGATIVE) Urine Urobilinogen (0-1) mg/dL Urine Leukocytes (NEGATIVE) Urine WBC (Auto) (0-5) /HPF Urine RBC (Auto) (0-2) /HPF U Epithel Cells (Auto) (FEW) /HPF Urine Bacteria (Auto) (NEGATIVE) /HPF Urine RBC (0-5) Lebron/ul Urine Mucus (Auto) (NEGATIVE) /HPF Ur Culture Indicated? Urine Glucose (NEGATIVE) mg/dL Salicylates (2-20) mg/dL Urine Opiates Level (NEGATIVE) Ur Methadone (NEGATIVE) Acetaminophen (10-30) ug/ml Urine Barbiturates (NEGATIVE) Ur Phencyclidine (PCP) (NEGATIVE) Urine Amphetamine (NEGATIVE) U Benzodiazepine Level (NEGATIVE) Urine Marijuana (THC) (NEGATIVE) Ethyl Alcohol < 10 (0-10) mg/dL Influenza Type A Ag (NEGATIVE) Influenza Type B Ag (NEGATIVE) SARS-CoV-2 Antigen (NEGATIVE) 06/29/22 06/29/22 06/29/22 Range/Units 17:12 18:34 23:11 WBC (4.0-10.5) x10^3/uL RBC (4.1-5.6) x10^6/uL Hgb (12.5-18.0) g/dL Hct (42-50) % MCV (78-100) fL MCH (26-32) pg MCHC (32-36) g/dL RDW (11.5-14.0) % Plt Count (150-450) x10^3/uL MPV (7.5-11.0) fL Gran % (36.0-66.0) % Immature Gran % (Auto) (0.00-0.4) % Nucleat RBC Rel Count (0.00-0.1) % Eos # (Auto) (0-0.5) x10^3/uL Immature Gran # (Auto) (0.00-0.03) x10^3u/L Absolute Lymphs (auto) (1.0-4.6) x10^3/uL Absolute Monos (auto) (0.0-1.3) x10^3/uL Absolute Nucleated RBC (0.00-0.01) x10^3u/L Lymphocytes % (24.0-44.0) % Monocytes % (0.0-12.0) % Eosinophils % (0.00-5.0) % Basophils % (0.0-0.4) % Absolute Granulocytes (1.4-6.9) x10^3/uL Basophils # (0-0.4) x10^3/uL Sodium (137-145) mmol/L Potassium (3.5-5.1) mmol/L Chloride (98-107) mmol/L Carbon Dioxide (22-30) mmol/L Anion Gap (5-15) MEQ/L BUN (9-20) mg/dL Creatinine (0.66-1.25) mg/dL Estimated GFR ML/MIN Glucose (74-106) mg/dL POC Glucometer 103 (74 to 106) mg/dL Hemoglobin A1c (4.5-6.0) % Lactic Acid (0.4-2.0) Calcium (8.4-10.2) mg/dL Magnesium (1.6-2.3) mg/dL Total Bilirubin (0.2-1.3) mg/dL AST (17-59) U/L ALT (0-50) U/L Alkaline Phosphatase (38-126) U/L Ammonia (9-30) umol/L Creatine Kinase 1052 H (55-170) U/L Troponin I (0.000-0.034) ng/mL NT-Pro-B Natriuret Pep (0-900) pg/mL Serum Total Protein (6.3-8.2) g/dL Albumin (3.5-5.0) g/dL Lipase (23-300) U/L Urinalys Dipstick Clnc Urine Color (YELLOW) Urine Appearance (CLEAR) Urine pH (5-6) Ur Specific [place] (1.005-1.025) POC Urine Protein Conf (Negative) Urine Ketones (NEGATIVE) Urine Nitrite (NEGATIVE) Urine Bilirubin (NEGATIVE) Urine Urobilinogen (0-1) mg/dL Urine Leukocytes (NEGATIVE) Urine WBC (Auto) (0-5) /HPF Urine RBC (Auto) (0-2) /HPF U Epithel Cells (Auto) (FEW) /HPF Urine Bacteria (Auto) (NEGATIVE) /HPF Urine RBC (0-5) Lebron/ul Urine Mucus (Auto) (NEGATIVE) /HPF Ur Culture Indicated? Urine Glucose (NEGATIVE) mg/dL Salicylates < 1.0 L (2-20) mg/dL Urine Opiates Level (NEGATIVE) Ur Methadone (NEGATIVE) Acetaminophen < 10 L (10-30) ug/ml Urine Barbiturates (NEGATIVE) Ur Phencyclidine (PCP) (NEGATIVE) Urine Amphetamine (NEGATIVE) U Benzodiazepine Level (NEGATIVE) Urine Marijuana (THC) (NEGATIVE) Ethyl Alcohol (0-10) mg/dL Influenza Type A Ag NEGATIVE (NEGATIVE) Influenza Type B Ag NEGATIVE (NEGATIVE) SARS-CoV-2 Antigen NEGATIVE (NEGATIVE) 06/30/22 06/30/22 06/30/22 Range/Units 04:55 04:55 04:55 WBC 5.5 (4.0-10.5) x10^3/uL RBC 4.14 (4.1-5.6) x10^6/uL Hgb 11.9 L (12.5-18.0) g/dL Hct 37.8 L (42-50) % MCV 91.3 (78-100) fL MCH 28.7 (26-32) pg MCHC 31.5 L (32-36) g/dL RDW 13.2 (11.5-14.0) % Plt Count 243 (150-450) x10^3/uL MPV 9.3 (7.5-11.0) fL Gran % 61.1 (36.0-66.0) % Immature Gran % (Auto) 0.2 (0.00-0.4) % Nucleat RBC Rel Count 0.0 (0.00-0.1) % Eos # (Auto) 0.23 (0-0.5) x10^3/uL Immature Gran # (Auto) 0.01 (0.00-0.03) x10^3u/L Absolute Lymphs (auto) 1.20 (1.0-4.6) x10^3/uL Absolute Monos (auto) 0.65 (0.0-1.3) x10^3/uL Absolute Nucleated RBC 0.00 (0.00-0.01) x10^3u/L Lymphocytes % 21.9 L (24.0-44.0) % Monocytes % 11.9 (0.0-12.0) % Eosinophils % 4.2 (0.00-5.0) % Basophils % 0.7 (0.0-0.4) % Absolute Granulocytes 3.34 (1.4-6.9) x10^3/uL Basophils # 0.04 (0-0.4) x10^3/uL Sodium 138 (137-145) mmol/L Potassium 4.0 (3.5-5.1) mmol/L Chloride 107 (98-107) mmol/L Carbon Dioxide 29 (22-30) mmol/L Anion Gap 6.3 (5-15) MEQ/L BUN 15 (9-20) mg/dL Creatinine 1.21 (0.66-1.25) mg/dL Estimated GFR > 60.0 ML/MIN Glucose 91 (74-106) mg/dL POC Glucometer (74 to 106) mg/dL Hemoglobin A1c (4.5-6.0) % Lactic Acid (0.4-2.0) Calcium 8.5 (8.4-10.2) mg/dL Magnesium (1.6-2.3) mg/dL Total Bilirubin 0.60 (0.2-1.3) mg/dL AST 39 (17-59) U/L ALT 33 (0-50) U/L Alkaline Phosphatase 57 (38-126) U/L Ammonia (9-30) umol/L Creatine Kinase (55-170) U/L Troponin I 0.020 (0.000-0.034) ng/mL NT-Pro-B Natriuret Pep (0-900) pg/mL Serum Total Protein 6.1 L (6.3-8.2) g/dL Albumin 3.3 L (3.5-5.0) g/dL Lipase (23-300) U/L Urinalys Dipstick Clnc Urine Color (YELLOW) Urine Appearance (CLEAR) Urine pH (5-6) Ur Specific [place] (1.005-1.025) POC Urine Protein Conf (Negative) Urine Ketones (NEGATIVE) Urine Nitrite (NEGATIVE) Urine Bilirubin (NEGATIVE) Urine Urobilinogen (0-1) mg/dL Urine Leukocytes (NEGATIVE) Urine WBC (Auto) (0-5) /HPF Urine RBC (Auto) (0-2) /HPF U Epithel Cells (Auto) (FEW) /HPF Urine Bacteria (Auto) (NEGATIVE) /HPF Urine RBC (0-5) Lebron/ul Urine Mucus (Auto) (NEGATIVE) /HPF Ur Culture Indicated? Urine Glucose (NEGATIVE) mg/dL Salicylates (2-20) mg/dL Urine Opiates Level (NEGATIVE) Ur Methadone (NEGATIVE) Acetaminophen (10-30) ug/ml Urine Barbiturates (NEGATIVE) Ur Phencyclidine (PCP) (NEGATIVE) Urine Amphetamine (NEGATIVE) U Benzodiazepine Level (NEGATIVE) Urine Marijuana (THC) (NEGATIVE) Ethyl Alcohol (0-10) mg/dL Influenza Type A Ag (NEGATIVE) Influenza Type B Ag (NEGATIVE) SARS-CoV-2 Antigen (NEGATIVE) 06/30/22 06/30/22 06/30/22 Range/Units 04:55 04:55 05:05 WBC (4.0-10.5) x10^3/uL RBC (4.1-5.6) x10^6/uL Hgb (12.5-18.0) g/dL Hct (42-50) % MCV (78-100) fL MCH (26-32) pg MCHC (32-36) g/dL RDW (11.5-14.0) % Plt Count (150-450) x10^3/uL MPV (7.5-11.0) fL Gran % (36.0-66.0) % Immature Gran % (Auto) (0.00-0.4) % Nucleat RBC Rel Count (0.00-0.1) % Eos # (Auto) (0-0.5) x10^3/uL Immature Gran # (Auto) (0.00-0.03) x10^3u/L Absolute Lymphs (auto) (1.0-4.6) x10^3/uL Absolute Monos (auto) (0.0-1.3) x10^3/uL Absolute Nucleated RBC (0.00-0.01) x10^3u/L Lymphocytes % (24.0-44.0) % Monocytes % (0.0-12.0) % Eosinophils % (0.00-5.0) % Basophils % (0.0-0.4) % Absolute Granulocytes (1.4-6.9) x10^3/uL Basophils # (0-0.4) x10^3/uL Sodium (137-145) mmol/L Potassium (3.5-5.1) mmol/L Chloride (98-107) mmol/L Carbon Dioxide (22-30) mmol/L Anion Gap (5-15) MEQ/L BUN (9-20) mg/dL Creatinine (0.66-1.25) mg/dL Estimated GFR ML/MIN Glucose (74-106) mg/dL POC Glucometer (74 to 106) mg/dL Hemoglobin A1c 5.42 (4.5-6.0) % Lactic Acid 0.7 (0.4-2.0) Calcium (8.4-10.2) mg/dL Magnesium (1.6-2.3) mg/dL Total Bilirubin (0.2-1.3) mg/dL AST (17-59) U/L ALT (0-50) U/L Alkaline Phosphatase (38-126) U/L Ammonia (9-30) umol/L Creatine Kinase 662 H (55-170) U/L Troponin I (0.000-0.034) ng/mL NT-Pro-B Natriuret Pep (0-900) pg/mL Serum Total Protein (6.3-8.2) g/dL Albumin (3.5-5.0) g/dL Lipase (23-300) U/L Urinalys Dipstick Clnc Urine Color (YELLOW) Urine Appearance (CLEAR) Urine pH (5-6) Ur Specific [place] (1.005-1.025) POC Urine Protein Conf (Negative) Urine Ketones (NEGATIVE) Urine Nitrite (NEGATIVE) Urine Bilirubin (NEGATIVE) Urine Urobilinogen (0-1) mg/dL Urine Leukocytes (NEGATIVE) Urine WBC (Auto) (0-5) /HPF Urine RBC (Auto) (0-2) /HPF U Epithel Cells (Auto) (FEW) /HPF Urine Bacteria (Auto) (NEGATIVE) /HPF Urine RBC (0-5) Lebron/ul Urine Mucus (Auto) (NEGATIVE) /HPF Ur Culture Indicated? Urine Glucose (NEGATIVE) mg/dL Salicylates (2-20) mg/dL Urine Opiates Level (NEGATIVE) Ur Methadone (NEGATIVE) Acetaminophen (10-30) ug/ml Urine Barbiturates (NEGATIVE) Ur Phencyclidine (PCP) (NEGATIVE) Urine Amphetamine (NEGATIVE) U Benzodiazepine Level (NEGATIVE) Urine Marijuana (THC) (NEGATIVE) Ethyl Alcohol (0-10) mg/dL Influenza Type A Ag (NEGATIVE) Influenza Type B Ag (NEGATIVE) SARS-CoV-2 Antigen (NEGATIVE) 06/30/22 06/30/22 Range/Units 11:33 16:11 WBC (4.0-10.5) x10^3/uL RBC (4.1-5.6) x10^6/uL Hgb (12.5-18.0) g/dL Hct (42-50) % MCV (78-100) fL MCH (26-32) pg MCHC (32-36) g/dL RDW (11.5-14.0) % Plt Count (150-450) x10^3/uL MPV (7.5-11.0) fL Gran % (36.0-66.0) % Immature Gran % (Auto) (0.00-0.4) % Nucleat RBC Rel Count (0.00-0.1) % Eos # (Auto) (0-0.5) x10^3/uL Immature Gran # (Auto) (0.00-0.03) x10^3u/L Absolute Lymphs (auto) (1.0-4.6) x10^3/uL Absolute Monos (auto) (0.0-1.3) x10^3/uL Absolute Nucleated RBC (0.00-0.01) x10^3u/L Lymphocytes % (24.0-44.0) % Monocytes % (0.0-12.0) % Eosinophils % (0.00-5.0) % Basophils % (0.0-0.4) % Absolute Granulocytes (1.4-6.9) x10^3/uL Basophils # (0-0.4) x10^3/uL Sodium (137-145) mmol/L Potassium (3.5-5.1) mmol/L Chloride (98-107) mmol/L Carbon Dioxide (22-30) mmol/L Anion Gap (5-15) MEQ/L BUN (9-20) mg/dL Creatinine (0.66-1.25) mg/dL Estimated GFR ML/MIN Glucose (74-106) mg/dL POC Glucometer 96 123 H (74 to 106) mg/dL Hemoglobin A1c (4.5-6.0) % Lactic Acid (0.4-2.0) Calcium (8.4-10.2) mg/dL Magnesium (1.6-2.3) mg/dL Total Bilirubin (0.2-1.3) mg/dL AST (17-59) U/L ALT (0-50) U/L Alkaline Phosphatase (38-126) U/L Ammonia (9-30) umol/L Creatine Kinase (55-170) U/L Troponin I (0.000-0.034) ng/mL NT-Pro-B Natriuret Pep (0-900) pg/mL Serum Total Protein (6.3-8.2) g/dL Albumin (3.5-5.0) g/dL Lipase (23-300) U/L Urinalys Dipstick Clnc Urine Color (YELLOW) Urine Appearance (CLEAR) Urine pH (5-6) Ur Specific [place] (1.005-1.025) POC Urine Protein Conf (Negative) Urine Ketones (NEGATIVE) Urine Nitrite (NEGATIVE) Urine Bilirubin (NEGATIVE) Urine Urobilinogen (0-1) mg/dL Urine Leukocytes (NEGATIVE) Urine WBC (Auto) (0-5) /HPF Urine RBC (Auto) (0-2) /HPF U Epithel Cells (Auto) (FEW) /HPF Urine Bacteria (Auto) (NEGATIVE) /HPF Urine RBC (0-5) Lebron/ul Urine Mucus (Auto) (NEGATIVE) /HPF Ur Culture Indicated? Urine Glucose (NEGATIVE) mg/dL Salicylates (2-20) mg/dL Urine Opiates Level (NEGATIVE) Ur Methadone (NEGATIVE) Acetaminophen (10-30) ug/ml Urine Barbiturates (NEGATIVE) Ur Phencyclidine (PCP) (NEGATIVE) Urine Amphetamine (NEGATIVE) U Benzodiazepine Level (NEGATIVE) Urine Marijuana (THC) (NEGATIVE) Ethyl Alcohol (0-10) mg/dL Influenza Type A Ag (NEGATIVE) Influenza Type B Ag (NEGATIVE) SARS-CoV-2 Antigen (NEGATIVE) Accuchecks Date 06/30/22 Date 06/29/22 Time 11:59 Time 23:27 - Radiology Impressions Radiology Exams & Impressions: Radiology Procedures Category Date Time Status CHEST 1 VIEW (PORTABLE) Stat Exams 06/29/22 16:42 Completed ECHO W/2D AND DOPPLER [US] Routine Exams 07/01/22 08:00 Ordered HEAD WITHOUT CONTRAST [CT] Stat Exams 06/29/22 17:41 Completed TESTICLE [US] Routine Exams 07/01/22 12:00 Ordered VENOUS BILATERAL EXTREMITY [US] Stat Exams 06/29/22 20:21 Completed - Other Procedures and Tests Respiratory Therapy 06/29/22 22:59 Respiratory Therapy Assessment DAILY 07/01/22 09:00 EEG 41-60 Minutes (Normal) ONCE Assessment/Plan (1) Acute delirium Current Visit: Yes Status: Resolved Code(s): R41.0 - DISORIENTATION, UNSPECIFIED (2) Chest pain Current Visit: Yes Status: Acute Qualifiers: Chest pain type: unspecified Qualified Code(s): R07.9 - Chest pain, unspecified Assessment & Plan: ruled out AL. Code(s): R07.9 - CHEST PAIN, UNSPECIFIED (3) Drug use Current Visit: Yes Status: Acute Assessment & Plan: methamphetamine. Tells me he is ready to quit. Code(s): F19.90 - OTHER PSYCHOACTIVE SUBSTANCE USE, UNSPECIFIED, UNCOMPLICATED (4) Testicular mass Current Visit: Yes Status: Acute Assessment & Plan: U/s testes in the morning. (5) Seizure Current Visit: Yes Status: Suspected Assessment & Plan: Not sure what to make of the "side of my brain shuts down" complaint, but will r/o Code(s): R56.9 - UNSPECIFIED CONVULSIONS (6) Renal insufficiency Current Visit: Yes Status: Resolved (7) Elevated CPK Current Visit: Yes Status: Acute Assessment & Plan: improved - recheck in a.m. (8) Leg edema Current Visit: Yes Status: Chronic Assessment & Plan: no echo found recently in our system - repeat in a.m. Code(s): R60.0 - LOCALIZED EDEMA (9) Depression Current Visit: Yes Status: Chronic Qualifiers: Depression Type: major depressive disorder Major depression recurrence: recurrent Active/Remission status: currently active Major depression episode severity: moderate Qualified Code(s): F33.1 - Major depressive disorder, recurrent, moderate Assessment & Plan: denies current suicidal or homicidal ideation. Due to the concurrent drug use, will consult [facility] in a.m. Code(s): F32.A - DEPRESSION, UNSPECIFIED
[2022-06-30] MEDS ORDERED: Pepcid 20 MG VIAL IV ONE (21:23)
[2022-06-30] MEDS: Ativan 1 MG PO PRN (21:23)
[2022-06-30] MEDS ORDERED: NON-FORMULARY ITEM (Atorvastatin Calcium [Atorvastatin Calcium] 20 MG Tablet) PO SCH (22:00)
[2022-06-30] MEDS ORDERED: ZOCOR 20MG PO SCH (22:00)
[2022-07-01 04:57] LABS: Absolute Neutrophil Ct (ANC) 3.35 x10^3/uL (1.4-6.9); Basophil (Absolute #) 0.06 x10^3/uL (0-0.4); Eosinophil (Absolute #) 0.28 x10^3/uL (0-0.5); Hematocrit 38.4 % (42-50); Lymphocyte (Absolute #) 1.27 x10^3/uL (1.0-4.6); Lymphocytes % 22.8 % (24.0-44.0); Mean Corpuscular Hemoglobin 28.4 pg (26-32); Mean Corpuscular Hgb Concent. 31.3 g/dL (32-36); Mean Platelet Volume 9.3 fL (7.5-11.0); Monocyte (Absolute #) 0.58 x10^3/uL (0.0-1.3); Monocytes % 10.4 % (0.0-12.0); Neutrophil % 60.3 % (36.0-66.0); Platelet Count 264 x10^3/uL (150-450); Red Blood Count 4.22 x10^6/uL (4.1-5.6); Red Cell Distribution Width 13.2 % (11.5-14.0); White Blood Count 5.6 x10^3/uL (4.0-10.5)
[2022-07-01 05:31] LABS: ALBUMIN 3.4 g/dL (3.5-5.0); ALKALINE PHOSPHATASE 66 U/L (38-126); BLOOD UREA NITROGEN 13 mg/dL (9-20); CHLORIDE 104 mmol/L (98-107); Calcium 8.8 mg/dL (8.4-10.2); Carbon Dioxide 24 mmol/L (22-30); Creatinine 1 1.17 mg/dL (0.66-1.25); EST GLOMERULAR FILTRATION RATE > 60.0 ML/MIN; Glucose 93 mg/dL (74-106); SGOT/AST 32 U/L (17-59); SGPT/ALT 59 U/L (0-50); SODIUM 136 mmol/L (137-145); Total Protein 6.1 g/dL (6.3-8.2)
[2022-07-01] MEDS ORDERED: NON-FORMULARY ITEM (Omeprazole [Omeprazole] 20 MG Capsule.Dr) PO SCH (10:00)
[2022-07-01] MEDS ORDERED: Protonix 40MG Tablet PO SCH (10:00)
[2022-07-01] MEDS ORDERED: NON-FORMULARY ITEM (Diltiazem Hcl [Diltiazem 24hr Er (Cd)] 240 MG Cap.Er.24h) PO SCH (10:00)
[2022-07-01] MEDS: Aldactone 25 MG PO SCH ×2 (11:21→20:22)
[2022-07-01] MEDS: ENOXAPARIN SODIUM SQ SCH (11:22)
[2022-07-01] MEDS: Lasix 40 MG/4 ML IV SCH (11:22)
[2022-07-01] MEDS: Pepcid 20 MG VIAL IV SCH ×2 (11:32→20:22)
--- NOTE | 2022-07-01 11:53 | XRAY ---
Indication: Edema. Palpable mass, left greater than right. Two-dimensional testicular sonogram performed. Comparison: None Both testicles are homogeneous in echogenicity. Right testicle measures 4.0 x 2.7 x 4.3 cm and the left measures 4.2 x 2.5 x 3.3 cm. Right testicle demonstrates increased hyperemic color Doppler flow favoring orchitis. Small right scrotal hydrocele presumed reactive. Left testicle demonstrates normal color Doppler flow. Left epididymis demonstrates a 1.0 x 2.1 x 1.0 cm cyst. Right epididymis unremarkable. No suspicious extratesticular mass. Impression: 1. Mild right orchitis with small reactive scrotocele. 2. Left epididymal cyst.
[2022-07-01] MEDS: Ativan 1 MG PO PRN ×2 (12:24→20:26)
--- NOTE | 2022-07-01 12:31 | PCM.DS ---
Discharge Summary Date of Admission: 06/29/22 21:46 Admitting Physician: HONORIO GAMEZ Consults: Consults on Case 07/01/22 08:00 Consult,Shane [Psychiatric Consult] ONCE Primary Care Provider: DIAZ RAMIREZ Allergies Allergies Penicillins Allergy (Verified 06/29/22 16:20) Hospital Summary - Hospital Course Hospital Course: Pt is a 51 yo male admitted through ER with AMS, found to have used methamphetamine. Ruled out for [place]. He also complained of testicular pain (found to have orchitis and treated with 1g IV rocephin, will also start 100mg doxycycline BID x 10d), LE edema (echo pending), and odd episodes (EEG normal). He also discussed depression, denied current suicidal ideation yesterday, but after [facility] consult today, they recommended inpatient and to ED pt if not agreeable. He is currently somewhat agreeable. Will discharge on doxycycline. He has many meds on his home med list that he doesn't take - BP have been moderately elevated, will continue spironolactone, but didn't continue cardizem (HR was in mike 60s) or lasix (gave 80mg IV lasix yesterday with no improvement in edema - and awiat the echo). - Vitals & Intake/Output Vital Signs: Vital Signs Temperature 98.2 F 07/01/22 08:00 Pulse Rate 80 07/01/22 08:00 Respiratory Rate 24 07/01/22 08:00 Blood Pressure 140/100 07/01/22 08:00 O2 Sat by Pulse Oximetry 99 07/01/22 08:00 Intake & Output: Intake & Output 06/29/22 06/30/22 07/01/22 07/02/22 11:59 11:59 11:59 11:59 Intake Total 1899 1517 Output Total 2300 Balance 1899 -783 Weight 111.2 kg - Lab Result Diagrams: 07/01/22 04:40 07/01/22 04:40 Lab Results-Last 24 Hrs: Lab Results-Last 24 Hours 06/30/22 07/01/22 07/01/22 Range/Units 16:11 04:40 04:40 WBC 5.6 (4.0-10.5) x10^3/uL RBC 4.22 (4.1-5.6) x10^6/uL Hgb 12.0 L (12.5-18.0) g/dL Hct 38.4 L (42-50) % MCV 91.0 (78-100) fL MCH 28.4 (26-32) pg MCHC 31.3 L (32-36) g/dL RDW 13.2 (11.5-14.0) % Plt Count 264 (150-450) x10^3/uL MPV 9.3 (7.5-11.0) fL Gran % 60.3 (36.0-66.0) % Immature Gran % (Auto) 0.4 (0.00-0.4) % Nucleat RBC Rel Count 0.0 (0.00-0.1) % Eos # (Auto) 0.28 (0-0.5) x10^3/uL Immature Gran # (Auto) 0.02 (0.00-0.03) x10^3u/L Absolute Lymphs (auto) 1.27 (1.0-4.6) x10^3/uL Absolute Monos (auto) 0.58 (0.0-1.3) x10^3/uL Absolute Nucleated RBC 0.00 (0.00-0.01) x10^3u/L Lymphocytes % 22.8 L (24.0-44.0) % Monocytes % 10.4 (0.0-12.0) % Eosinophils % 5.0 (0.00-5.0) % Basophils % 1.1 (0.0-0.4) % Absolute Granulocytes 3.35 (1.4-6.9) x10^3/uL Basophils # 0.06 (0-0.4) x10^3/uL Sodium (137-145) mmol/L Potassium (3.5-5.1) mmol/L Chloride (98-107) mmol/L Carbon Dioxide (22-30) mmol/L Anion Gap (5-15) MEQ/L BUN (9-20) mg/dL Creatinine (0.66-1.25) mg/dL Estimated GFR ML/MIN Glucose (74-106) mg/dL POC Glucometer 123 H (74 to 106) mg/dL Calcium (8.4-10.2) mg/dL Total Bilirubin (0.2-1.3) mg/dL AST (17-59) U/L ALT (0-50) U/L Alkaline Phosphatase (38-126) U/L Creatine Kinase 221 H (55-170) U/L Serum Total Protein (6.3-8.2) g/dL Albumin (3.5-5.0) g/dL 07/01/22 07/01/22 Range/Units 04:40 07:37 WBC (4.0-10.5) x10^3/uL RBC (4.1-5.6) x10^6/uL Hgb (12.5-18.0) g/dL Hct (42-50) % MCV (78-100) fL MCH (26-32) pg MCHC (32-36) g/dL RDW (11.5-14.0) % Plt Count (150-450) x10^3/uL MPV (7.5-11.0) fL Gran % (36.0-66.0) % Immature Gran % (Auto) (0.00-0.4) % Nucleat RBC Rel Count (0.00-0.1) % Eos # (Auto) (0-0.5) x10^3/uL Immature Gran # (Auto) (0.00-0.03) x10^3u/L Absolute Lymphs (auto) (1.0-4.6) x10^3/uL Absolute Monos (auto) (0.0-1.3) x10^3/uL Absolute Nucleated RBC (0.00-0.01) x10^3u/L Lymphocytes % (24.0-44.0) % Monocytes % (0.0-12.0) % Eosinophils % (0.00-5.0) % Basophils % (0.0-0.4) % Absolute Granulocytes (1.4-6.9) x10^3/uL Basophils # (0-0.4) x10^3/uL Sodium 136 L (137-145) mmol/L Potassium 4.0 (3.5-5.1) mmol/L Chloride 104 (98-107) mmol/L Carbon Dioxide 24 (22-30) mmol/L Anion Gap 12.0 (5-15) MEQ/L BUN 13 (9-20) mg/dL Creatinine 1.17 (0.66-1.25) mg/dL Estimated GFR > 60.0 ML/MIN Glucose 93 (74-106) mg/dL POC Glucometer 96 (74 to 106) mg/dL Calcium 8.8 (8.4-10.2) mg/dL Total Bilirubin 0.30 (0.2-1.3) mg/dL AST 32 (17-59) U/L ALT 59 H (0-50) U/L Alkaline Phosphatase 66 (38-126) U/L Creatine Kinase (55-170) U/L Serum Total Protein 6.1 L (6.3-8.2) g/dL Albumin 3.4 L (3.5-5.0) g/dL Micro Results-Entire Visit: Accuchecks Date 06/30/22 Time 16:45 - Radiology Exams Ordered Rad Exams-Entire Visit: Radiology Procedures Category Date Time Status CHEST 1 VIEW (PORTABLE) Stat Exams 06/29/22 16:42 Completed ECHO W/2D AND DOPPLER [US] Routine Exams 07/01/22 08:04 Taken HEAD WITHOUT CONTRAST [CT] Stat Exams 06/29/22 17:41 Completed TESTICLE [US] Routine Exams 07/01/22 12:00 Completed VENOUS BILATERAL EXTREMITY [US] Stat Exams 06/29/22 20:21 Completed - Procedures and Test Procedures and Tests throughout Hospitalization: Therapy Orders & Screens 06/29/22 21:56 Respiratory Therapy Consult ROUTINE Comment: Reason For Exam: 06/29/22 22:59 Respiratory Therapy Assessment DAILY Comment: Diagnosis: ACUTE DELIRIUM 07/01/22 09:00 EEG 41-60 Minutes (Normal) ONCE Comment: Reason For Exam: Diagnosis: ACUTE DELIRIUM Discharge Exam General Appearance: no apparent distress, alert Neurologic Exam: oriented x 3, cooperative Eye Exam: eyes nml inspection Ears, Nose, Throat Exam: moist mucous membranes Neck Exam: normal inspection Respiratory Exam: normal breath sounds, lungs clear, No crackles/rales, No rhonchi, No wheezing Cardiovascular Exam: regular rate/rhythm, normal heart sounds, No murmur Gastrointestinal/Abdomen Exam: soft, normal bowel sounds, No tenderness, No distention, No mass, No guarding, No rebound Extremity Exam: pedal edema, swelling (2+ LE edema) Skin Exam: normal color, warm, dry, No rash Final Diagnosis/Problem List - Final Discharge Diagnosis/Problem (1) Depression Current Visit: Yes Status: Chronic Assessment & Plan: Admit to [facility] inpatient. Code(s): F32.A - DEPRESSION, UNSPECIFIED (2) Orchitis Current Visit: Yes Status: Acute Assessment & Plan: continue doxycycline for 10d total. Code(s): N45.2 - ORCHITIS (3) Acute delirium Current Visit: Yes Status: Resolved Code(s): R41.0 - DISORIENTATION, UNSPECIFIED (4) Chest pain Current Visit: Yes Status: Suspected Code(s): R07.9 - CHEST PAIN, UNSPECIFIED (5) Drug use Current Visit: Yes Status: Chronic Code(s): F19.90 - OTHER PSYCHOACTIVE SUBSTANCE USE, UNSPECIFIED, UNCOMPLICATED (6) Seizure Current Visit: Yes Status: Suspected Code(s): R56.9 - UNSPECIFIED CONVULSIONS (7) Renal insufficiency Current Visit: Yes Status: Resolved (8) Elevated CPK Current Visit: Yes Status: Acute (9) Leg edema Current Visit: Yes Status: Chronic Assessment & Plan: echo pending Code(s): R60.0 - LOCALIZED EDEMA - Discharge Disposition: [facility] Condition: Stable Prescriptions: New Doxycycline Hyclate 100 mg [Vibramycin 100 MG] 100 mg PO BID #19 tab Lactobacillus Acidophilus [Acidophilus TABLET] 1 tab PO BID #20 tablet Continue Atorvastatin Calcium 20 mg PO HS Spironolactone 25 mg [Aldactone 25 MG] 25 mg PO BID Magnesium Oxide 400 mg [Mag-Ox 400] 400 mg PO DAILY Cyclobenzaprine HCl 10 mg [Cyclobenzaprine 10 MG] 10 mg PO TIDPRN PRN PRN Reason: Muscle Aches Omeprazole 20 mg PO DAILY Discontinued Furosemide [Lasix] 40 mg PO TID Potassium Chloride Tab* [Klor Con 10 MEQ] 10 meq PO TID dilTIAZem HCl [Diltiazem 24Hr Cd] 240 mg PO DAILY Follow up with: DIAZ RAMIREZ [Primary Care Provider] -
[2022-07-01] MEDS: Vibramycin 100 MG PO SCH ×2 (13:32→20:22)
[2022-07-01] MEDS: ROCEPHIN 1 Gm-D5w 50 ml Bag** 1 G/50 ML IVPB IV SCH (13:32)
[2022-07-02 07:36] LABS: Absolute Neutrophil Ct (ANC) 3.39 x10^3/uL (1.4-6.9); Basophil (Absolute #) 0.04 x10^3/uL (0-0.4); Eosinophil % 4.7 % (0.00-5.0); Eosinophil (Absolute #) 0.26 x10^3/uL (0-0.5); Hematocrit 41.3 % (42-50); Hemoglobin 13.4 g/dL (12.5-18.0); Lymphocyte (Absolute #) 1.29 x10^3/uL (1.0-4.6); Lymphocytes % 23.2 % (24.0-44.0); Mean Corpuscular Hemoglobin 29.2 pg (26-32); Mean Corpuscular Hgb Concent. 32.4 g/dL (32-36); Mean Platelet Volume 9.2 fL (7.5-11.0); Monocyte (Absolute #) 0.55 x10^3/uL (0.0-1.3); Monocytes % 9.9 % (0.0-12.0); Neutrophil % 61.1 % (36.0-66.0); Platelet Count 299 x10^3/uL (150-450); Red Blood Count 4.59 x10^6/uL (4.1-5.6); White Blood Count 5.6 x10^3/uL (4.0-10.5)
[2022-07-02 08:08] VITALS: BP 138/89; PULSE 83; O2SAT 94
[2022-07-02 08:24] LABS: ALKALINE PHOSPHATASE 70 U/L (38-126); ANION GAP 13.5 MEQ/L (5-15); BLOOD UREA NITROGEN 16 mg/dL (9-20); CHLORIDE 105 mmol/L (98-107); CK-Creatinine Phosphokinase 100 U/L (55-170); Calcium 9.5 mg/dL (8.4-10.2); Carbon Dioxide 22 mmol/L (22-30); Creatinine 1 1.11 mg/dL (0.66-1.25); EST GLOMERULAR FILTRATION RATE > 60.0 ML/MIN; Glucose 98 mg/dL (74-106); Potassium 4.1 mmol/L (3.5-5.1); SGOT/AST 27 U/L (17-59); SGPT/ALT 54 U/L (0-50); SODIUM 137 mmol/L (137-145); Total Protein 6.7 g/dL (6.3-8.2)
[2022-07-02] MEDS: Vibramycin 100 MG PO SCH (09:23)
[2022-07-02] MEDS: Aldactone 25 MG PO SCH (09:23)
[2022-07-02] MEDS: ENOXAPARIN SODIUM SQ SCH (10:38)
--- NOTE | 2022-07-02 10:46 | PCM.DS ---
Discharge Summary Date of Admission: 06/29/22 21:46 Admitting Physician: HONORIO GAMEZ Consults: Consults on Case 07/01/22 08:00 Consult,Shane [Psychiatric Consult] ONCE Primary Care Provider: DIAZ RAMIREZ Allergies Allergies Penicillins Allergy (Verified 06/29/22 16:20) Hospital Summary - Hospital Course Hospital Course: Pt is a 51 yo male admitted through ER with AMS, found to have used methamphetamine. Ruled out for [place]. He also complained of testicular pain (found to have orchitis and treated with 1g IV rocephin, will also start 100mg doxycycline BID x 10d), LE edema (echo pending), and odd episodes (EEG normal). Will discharge on doxycycline. He has many meds on his home med list that he doesn't take - BP have been moderately elevated, will continue spironolactone, but didn't continue cardizem (HR was in mike 60s). His edema is moderately improved today; will give po lasix and potassium he can take - may improve the scrotal edema as well. If not, will refer to urology outpatient. Discussed depression with pt at length. Yesterday, he denied suicidal ideation - had a history of drug overdose, quite remotely, and history of some suicidal ideation but denied any recently. Apparently [facility] noted that he had daily suicidal ideation. Today pt definitely refutes that, states he has had suicidal ideation at some point prior to admission but has not been having any suicidal ideation and does not plan to harm himself. He is, in fact, looking forward to seeing his son get out of [facility] next month. If pt had thoughts of harming himself, he would call somebody. Yesterday, I did sign the ED orders after the [facility] consult, based on their evaluation. Pt was sent to [facility] after receiving a bed number and the name of the admitting doctor - our RN tried to call report but was told by their RN that they didn't have time to take it - ambulance was present and had already picked the pt up so they sent the pt up to [facility]. Once the ambulance arrived, they were told that the pt had not been medically cleared and couldn't be admitted. I spoke with staff, they were concerned about the CK level of >1000 that was in fact from 06/29/22, and was down to nearly normal yesterday. They said to re- send yesterday's labs and they would "start all over." The ambulance waited for a while then returned to [place] with the patient, who, understandably, was growing restless. [facility] called later and said they would not be accepting the patient, but they had found someplace in [place] to send him. Pt does not want to go to [place] (pt cannot [facility] find a ride [facility] Staff has raised the question of whether the eval was noted in this patient's chart in error? It certainly does not match anything the pt said to me or to the rest of the staff. Based on my interview of the patient today and yesterday, I am rescinding the [facility] order and am discharging the patient to home. He is to follow up with me in office in 1 week. Will see if he will consider starting a prozac daily. - Vitals & Intake/Output Vital Signs: Vital Signs Temperature 98.3 F 07/02/22 08:07 Pulse Rate 83 07/02/22 08:07 Respiratory Rate 16 07/02/22 08:07 Blood Pressure 138/89 07/02/22 08:07 O2 Sat by Pulse Oximetry 94 L 07/02/22 08:07 Intake & Output: Intake & Output 06/29/22 06/30/22 07/01/22 07/02/22 11:59 11:59 11:59 11:59 Intake Total 1899 1517 Output Total 2300 Balance 1899 -783 Weight 111.2 kg 107.6 kg - Lab Result Diagrams: 07/02/22 07:27 07/02/22 07:27 Lab Results-Last 24 Hrs: Lab Results-Last 24 Hours 07/02/22 07/02/22 Range/Units 07:27 07:27 WBC 5.6 (4.0-10.5) x10^3/uL RBC 4.59 (4.1-5.6) x10^6/uL Hgb 13.4 (12.5-18.0) g/dL Hct 41.3 L (42-50) % MCV 90.0 (78-100) fL MCH 29.2 (26-32) pg MCHC 32.4 (32-36) g/dL RDW 13.0 (11.5-14.0) % Plt Count 299 (150-450) x10^3/uL MPV 9.2 (7.5-11.0) fL Gran % 61.1 (36.0-66.0) % Immature Gran % (Auto) 0.4 (0.00-0.4) % Nucleat RBC Rel Count 0.0 (0.00-0.1) % Eos # (Auto) 0.26 (0-0.5) x10^3/uL Immature Gran # (Auto) 0.02 (0.00-0.03) x10^3u/L Absolute Lymphs (auto) 1.29 (1.0-4.6) x10^3/uL Absolute Monos (auto) 0.55 (0.0-1.3) x10^3/uL Absolute Nucleated RBC 0.00 (0.00-0.01) x10^3u/L Lymphocytes % 23.2 L (24.0-44.0) % Monocytes % 9.9 (0.0-12.0) % Eosinophils % 4.7 (0.00-5.0) % Basophils % 0.7 (0.0-0.4) % Absolute Granulocytes 3.39 (1.4-6.9) x10^3/uL Basophils # 0.04 (0-0.4) x10^3/uL Sodium 137 (137-145) mmol/L Potassium 4.1 (3.5-5.1) mmol/L Chloride 105 (98-107) mmol/L Carbon Dioxide 22 (22-30) mmol/L Anion Gap 13.5 (5-15) MEQ/L BUN 16 (9-20) mg/dL Creatinine 1.11 (0.66-1.25) mg/dL Estimated GFR > 60.0 ML/MIN Glucose 98 (74-106) mg/dL Calcium 9.5 (8.4-10.2) mg/dL Total Bilirubin 0.20 (0.2-1.3) mg/dL AST 27 (17-59) U/L ALT 54 H (0-50) U/L Alkaline Phosphatase 70 (38-126) U/L Creatine Kinase 100 (55-170) U/L Serum Total Protein 6.7 (6.3-8.2) g/dL Albumin 4.0 (3.5-5.0) g/dL - Radiology Exams Ordered Rad Exams-Entire Visit: Radiology Procedures Category Date Time Status ECHO W/2D AND DOPPLER [US] Routine Exams 07/01/22 08:04 Taken TESTICLE [US] Routine Exams 07/01/22 12:00 Completed - Procedures and Test Procedures and Tests throughout Hospitalization: Therapy Orders & Screens 06/29/22 21:56 Respiratory Therapy Consult ROUTINE Comment: Reason For Exam: 06/29/22 22:59 Respiratory Therapy Assessment DAILY Comment: Diagnosis: ACUTE DELIRIUM 07/01/22 09:00 EEG 41-60 Minutes (Normal) ONCE Comment: Reason For Exam: Diagnosis: ACUTE DELIRIUM Discharge Exam General Appearance: no apparent distress, alert, other (most of visit, pt is lying in bed with a shirt over his eyes to block light. conversant.) Neurologic Exam: oriented x 3, cooperative Ears, Nose, Throat Exam: moist mucous membranes Neck Exam: normal inspection Respiratory Exam: normal breath sounds, lungs clear, No crackles/rales, No rhonchi, No wheezing Cardiovascular Exam: regular rate/rhythm, normal heart sounds, No murmur Gastrointestinal/Abdomen Exam: soft, normal bowel sounds, No tenderness, No distention, No mass, No guarding, No rebound Extremity Exam: other (2+ pretibial edema bilat) Skin Exam: normal color, warm, dry, No rash Final Diagnosis/Problem List - Final Discharge Diagnosis/Problem (1) Depression Current Visit: Yes Status: Chronic Assessment & Plan: Will send home on prozac, if pt is willing - cheap medication and long half life in the event he continues to have compliance issues. Code(s): F32.A - DEPRESSION, UNSPECIFIED (2) Orchitis Current Visit: Yes Status: Acute Assessment & Plan: home on doxycycline, d/w pt Code(s): N45.2 - ORCHITIS (3) Acute delirium Current Visit: Yes Status: Resolved Code(s): R41.0 - DISORIENTATION, UNSPECIFIED (4) Chest pain Current Visit: Yes Status: Resolved Code(s): R07.9 - CHEST PAIN, UNSPECIFIED (5) Drug use Current Visit: Yes Status: Chronic Code(s): F19.90 - OTHER PSYCHOACTIVE SUBSTANCE USE, UNSPECIFIED, UNCOMPLICATED (6) Seizure Current Visit: Yes Status: Ruled-out Assessment & Plan: EEG was nl. Code(s): R56.9 - UNSPECIFIED CONVULSIONS (7) Renal insufficiency Current Visit: Yes Status: Resolved (8) Elevated CPK Current Visit: Yes Status: Resolved (9) Leg edema Current Visit: Yes Status: Chronic Assessment & Plan: improved today - home on lasix Code(s): R60.0 - LOCALIZED EDEMA (10) Scrotal edema Current Visit: Yes Status: Acute Assessment & Plan: he will try taking the lasix (and potassium) daily for the next week, if persistent refer to urology. d/w pt. Code(s): N50.89 - OTHER SPECIFIED DISORDERS OF THE MALE GENITAL ORGANS - Discharge Disposition: Home, Self-Care Condition: Stable Prescriptions: New Doxycycline Hyclate 100 mg [Vibramycin 100 MG] 100 mg PO BID #19 tab Lactobacillus Acidophilus [Acidophilus TABLET] 1 tab PO BID #20 tablet Furosemide 40 mg [Lasix 40 MG] 80 mg PO DAILY #30 tablet Potassium Chloride 20 meq PO DAILY 30 Days #30 tab Fluoxetine HCl 10 mg [Prozac 10 mg] 10 mg PO DAILY #30 tablet Continue Atorvastatin Calcium 20 mg PO HS Spironolactone 25 mg [Aldactone 25 MG] 25 mg PO BID Magnesium Oxide 400 mg [Mag-Ox 400] 400 mg PO DAILY Cyclobenzaprine HCl 10 mg [Cyclobenzaprine 10 MG] 10 mg PO TIDPRN PRN PRN Reason: Muscle Aches Omeprazole 20 mg PO DAILY Discontinued Furosemide [Lasix] 40 mg PO TID Potassium Chloride Tab* [Klor Con 10 MEQ] 10 meq PO TID dilTIAZem HCl [Diltiazem 24Hr Cd] 240 mg PO DAILY Follow up with: DIAZ RAMIREZ [Primary Care Provider] - HONORIO GAMEZ [ACTIVE STAFF] - 07/09/22 11:15 am
[2022-07-02] MEDS: Lasix 40 MG/4 ML IV SCH (10:51)
[2022-07-02] MEDS: ROCEPHIN 1 Gm-D5w 50 ml Bag** 1 G/50 ML IVPB IV SCH (12:07)
[2022-07-02] MEDS: Pepcid 20 MG VIAL IV SCH (12:07)
--- NOTE | 2022-07-04 08:17 | ECHO ---
DATE OF PROCEDURE: 07/01/2022 CLINICAL INFORMATION: Lower extremity edema with history of congestive heart failure. The M-mode 2D, and Doppler echocardiogram including color flow Doppler shows the left ventricle is borderline dilated. There is no thrombus present. The septum is mildly increased. The left ventricular posterior wall thickness is normal. The left ventricular systolic function is at the lower limits of normal. The ejection fraction is calculated to be 50%. The left atrium is mildly dilated. The interatrial septum is intact. The right atrium is normal. The aortic valve opens well. There is no aortic regurgitation. There is mild mitral regurgitation present. There is mild tricuspid regurgitation. The right ventricular systolic pressure is calculated to be 34 mm of [place]. The pulmonic valve is not well visualized. The aortic root is normal. There is no pericardial effusion present. IMPRESSION: 1) LOW NORMAL LEFT VENTRICULAR SYSTOLIC FUNCTION. 2) MILD ASYMMETRIC LEFT VENTRICULAR HYPERTROPHY. 3) MILD LEFT ATRIAL DILATATION. 4) MILD MITRAL REGURGITATION. 5) MILD TRICUSPID REGURGITATION. 6) MILD PULMONARY HYPERTENSION.
== END 2022-07-02 12:03 | disposition home or self-care (01) ==
LOC: ED 16:12 → ICU 21:46 → MED SURG 07-01 16:37
PROVIDERS: ADMIT Family Medicine; ATTEND Family Medicine
DX: F32.A Depression, unspecified (principal); N45.2 Orchitis; R41.0 Disorientation, unspecified; R07.9 Chest pain, unspecified; F19.90 Other psychoactive substance use, unspecified, uncomplicated; R56.9 Unspecified convulsions; N28.9 Disorder of kidney and ureter, unspecified; R79.89 Other specified abnormal findings of blood chemistry; R60.0 Localized edema; I11.0 Hypertensive heart disease with heart failure; I50.9 Heart failure, unspecified; E78.00 Pure hypercholesterolemia, unspecified; N50.89 Other specified disorders of the male genital organs; Z79.899 Other long term (current) drug therapy; Z20.828 Contact with and (suspected) exposure to other viral communicable diseases; Z85.828 Personal history of other malignant neoplasm of skin
CPT/HCPCS: 36415; 70450; 71045; 76870; 80053; 80307; 81015; 82140; 82550; 82947; 83036; 83605; 83690; 83735; 83880; 84484; 85025; 87428; 93005; 93268; 93306; 93970; 95812; 96360; 96374; 96375; 99285; G0378; G0480; J0696; J1650; J1940; J2060; J2405; A9270-GY

== ENCOUNTER 2024-01-12 03:09 | Inpatient (IN) | payer OTHER ==
--- NOTE | 2024-01-12 03:30 | ERPHSYRPT ---
- History of Present Illness Time Seen by Provider: 01/12/24 03:15 Source: EMS Exam Limitations: clinical condition Physician History: 53yo m brought to ED by EMS for right upper extremity weakness and incomprehensible speech. Last known normal was 02:15 by pt's . EMS report states that pt has hx of drug abuse including multiple illegal substances, has been poorly compliant w/ his daily meds per his . Pt is unable to respond to questions or follow commands, does withdraw to pain. Pt is maintaining airway, saturating > 95% on 2L nc Allergies/Adverse Reactions: Penicillins Allergy (Verified 01/12/24 03:12) Home Medications: Atorvastatin Calcium 20 mg PO HS 06/29/22 [History] Cyclobenzaprine HCl 10 mg [Cyclobenzaprine 10 MG] 10 mg PO TIDPRN PRN 06/29/22 [History] Magnesium Oxide 400 mg [Mag-Ox 400] 400 mg PO DAILY 06/29/22 [History] Omeprazole 20 mg PO DAILY 06/29/22 [History] Spironolactone 25 mg [Aldactone 25 MG] 25 mg PO BID 06/29/22 [History] Hx Tetanus, Diphtheria Vaccination/Date Given: Yes (2009) Hx Influenza Vaccination/Date Given: No Hx Pneumococcal Vaccination/Date Given: No Travel Risk - Vaccine Status Have you recieved a Covid-19 vaccination: 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: [employer] - Past Medical History Pertinent Past Medical History: Yes Neurological History: No Pertinent History ENT History: No Pertinent History Cardiac History: Congestive Heart Failure, High Cholesterol, Hypertension Respiratory History: No Pertinent History Endocrine Medical History: No Pertinent History Musculoskeletal History: Degenerative Disk Disease GI Medical History: Other History: Other Psycho-Social History: Anxiety Male Reproductive Disorders: No Pertinent History Other Medical History: SKIN CANCER - Past Surgical History Past Surgical History: Yes Neuro Surgical History: No Pertinent History Cardiac: No Pertinent History Respiratory: No Pertinent History Gastrointestinal: No Pertinent History Genitourinary: Other Musculoskeletal: No Pertinent History Male Surgical History: No Pertinent History Other Surgical History: cancer left arm - Social History Smoking Status: Never smoker Exposure to second hand smoke: No Drug Use: methamphetamines Patient Lives Alone: No - Nursing Vital Signs Nursing Vital Signs: Initial Vital Signs Temperature 98.1 F 02/26/24 03:09 Pulse Rate 109 H 01/12/24 03:09 Respiratory Rate 31 H 01/12/24 03:09 Blood Pressure 110/84 01/12/24 03:09 O2 Sat by Pulse Oximetry 99 01/12/24 03:09 Pain Scale Pain Intensity 0 - [place] Coma Scale Best Eye Response ([place]): (3) open to voice Best Verbal Response ([place]): (1) no verbal response Best Motor Response ([place]): (4) withdraws to pain [place] Total: 8 - Physical Exam General Appearance: no apparent distress Eye Exam: bilateral eye: PERRL Respiratory: normal breath sounds, lungs clear, airway intact, other (snoring respirations), No respiratory distress Cardiovascular: regular rate/rhythm, tachycardia, edema (+3 pitting edema b/l LEs) Gastrointestinal: soft, normal bowel sounds, No distention 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, 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: PERRL SpO2 Interpretation: normal O2 Delivery: Nasal Cannula (2L) - Course EKG Interpreted by Me: RATE (108), Sinus Tach, NORMAL AXIS, Other (qtcb 355, no acute ST changes that would suggest ischemia) Ordered Tests: Active Orders 24 hr Category Date Time Status NPO (ED) STAT Care 01/12/24 03:24 Active Oxygen-ED Only Nasal Cannula 2 lpm Care 01/12/24 03:24 Active POCT Glucose Check STAT Care 01/12/24 03:24 Active CHEST 1 VIEW (PORTABLE) Stat Exams 01/12/24 03:[address] ANGIOGRAPHY NECK [CT] Stat Exams 01/12/24 03:50 Completed CTA HEAD W AND/OR WO CONTRAST [CT] Stat Exams 01/12/24 03:50 Taken HEAD WITHOUT CONTRAST [CT] Stat Exams 01/12/24 03:21 Completed ARTERIAL BLOOD GASES Urgent Lab 01/12/24 03:40 Completed CBC W DIFF Stat Lab 01/12/24 03:29 Completed CMP Stat Lab 01/12/24 03:29 Completed CULTURE,URINE Stat Lab 01/12/24 03:29 Received POCT GLUCOSE Stat Lab 01/12/24 03:37 Completed PROTIME WITH INR Stat Lab 01/12/24 03:29 Completed PTT Stat Lab 01/12/24 03:29 Completed TROPONIN Q4H Lab 01/12/24 03:00 Completed TROPONIN Q4H Lab 01/12/24 09:15 Ordered TROPONIN Q4H Lab 01/12/24 13:15 Ordered UA W/RFX UR CULTURE Stat Lab 01/12/24 03:29 Completed Urine Triage Profile Stat Lab 01/12/24 03:29 Completed Medication Summary Discontinued Medications Generic Name Dose Route Start Last Admin Trade Name Tl PRN Reason Stop Dose Admin Aspirin 300 mg 01/12/24 05:25 01/12/24 05:27 Aspirin 300 Mg Supp.Rect RC 01/12/24 05:26 300 mg STAT STA Administration Aspirin Confirm 01/12/24 05:25 Aspirin 300 Mg Supp.Rect Administered 01/12/24 05:26 Dose 300 mg RC .STK-MED ONE Lab/Rad Data: Laboratory Result Diagrams 01/12/24 03:29 01/12/24 03:29 Laboratory Results 01/12/24 01/12/24 01/12/24 Range/Units 03:40 03:37 03:29 WBC (4.0-10.5) x10^3/uL RBC (4.1-5.6) x10^6/uL Hgb (12.5-18.0) g/dL Hct (42-50) % MCV (78-100) fL MCH (26-32) pg MCHC (32-36) g/dL RDW (11.5-14.0) % Plt Count (150-450) x10^3/uL MPV (7.5-11.0) fL Gran % (36.0-66.0) % Immature Gran % (Auto) (0.00-0.4) % Nucleat RBC Rel Count (0.00-0.1) % Eos # (Auto) (0-0.5) x10^3/uL Immature Gran # (Auto) (0.00-0.03) x10^3u/L Absolute Lymphs (auto) (1.0-4.6) x10^3/uL Absolute Monos (auto) (0.0-1.3) x10^3/uL Absolute Nucleated RBC (0.00-0.01) x10^3u/L Lymphocytes % (24.0-44.0) % Monocytes % (0.0-12.0) % Eosinophils % (0.00-5.0) % Basophils % (0.0-0.4) % Absolute Granulocytes (1.4-6.9) x10^3/uL Basophils # (0-0.4) x10^3/uL PT (9.4-12.5) SECONDS INR (0.8-3.0) APTT (25.1-36.5) SECONDS Puncture Site LEFT RADIAL pCO2 26 L (35-45) mmHg pO2 115 H (75-100) mmHg Base Excess -4.0 L (-2.0-2.0) O2 Saturation 97.2 (94-100) g/dF ABG pH 7.46 H (7.35-7.45) ABG HCO3 18.5 L (22-28) ABG O2 Sat (Measured) 99.6 (95-100) % Jet Test YES A-a Gradient 52 a/A Ratio 0.69 Hemoglobin 12.2 Carboxyhemoglobin 1.4 (0.0-6.9) % THgb Methemoglobin 1.0 L (1.4-1.5) % Temperature 37.0 C POC O2 Flow Rate 28 % Sodium (137-145) mmol/L Potassium 4.3 (3.5-5.1) mmol/L Chloride (98-107) mmol/L Carbon Dioxide (22-30) mmol/L Anion Gap (5-15) MEQ/L BUN (9-20) mg/dL Creatinine (0.66-1.25) mg/dL Estimated GFR ML/MIN Glucose (74-106) mg/dL POC Glucometer 107 H (74 to 106) mg/dL Calcium (8.4-10.2) mg/dL Total Bilirubin (0.2-1.3) mg/dL AST (17-59) U/L ALT (0-50) U/L Alkaline Phosphatase (38-126) U/L Troponin I (0.000-0.034) ng/mL Serum Total Protein (6.3-8.2) g/dL Albumin (3.5-5.0) g/dL Urine Color (Yellow) Urine Appearance (Clear) Urine pH (4.6-8.0) Ur Specific [place] (1.005-1.030) Urine Protein (Negative) Urine Glucose (UA) (Negative) mg/dL Urine Ketones (Negative) Urine Blood (Negative) Urine Nitrite (Negative) Urine Bilirubin (Negative) Urine Urobilinogen (0.2) mg/dL Ur Leukocyte Esterase (Negative) U Hyaline Cast (Auto) (0-2) /LPF Urine Microscopic RBC (0-5) /HPF Urine Microscopic WBC (0-5) /HPF Ur Epithelial Cells (None Seen) /HPF Urine Bacteria (None Seen) /HPF Urine Culture Reflexed (NO) Urine Opiates Level NEGATIVE (NEGATIVE) Ur Methadone NEGATIVE (NEGATIVE) Urine Barbiturates NEGATIVE (NEGATIVE) Ur Phencyclidine (PCP) NEGATIVE (NEGATIVE) Urine Amphetamine POSITIVE A (NEGATIVE) U Benzodiazepine Level NEGATIVE (NEGATIVE) Urine Cocaine NEGATIVE (NEGATIVE) Urine Marijuana (THC) NEGATIVE (NEGATIVE) 01/12/24 01/12/24 01/12/24 Range/Units 03:29 03:29 03:29 WBC 6.2 (4.0-10.5) x10^3/uL RBC 4.14 (4.1-5.6) x10^6/uL Hgb 11.5 L (12.5-18.0) g/dL Hct 36.6 L (42-50) % MCV 88.4 (78-100) fL MCH 27.8 (26-32) pg MCHC 31.4 L (32-36) g/dL RDW 14.5 H (11.5-14.0) % Plt Count 318 (150-450) x10^3/uL MPV 9.5 (7.5-11.0) fL Gran % 66.4 H (36.0-66.0) % Immature Gran % (Auto) 0.5 H (0.00-0.4) % Nucleat RBC Rel Count 0.0 (0.00-0.1) % Eos # (Auto) 0.09 (0-0.5) x10^3/uL Immature Gran # (Auto) 0.03 (0.00-0.03) x10^3u/L Absolute Lymphs (auto) 1.22 (1.0-4.6) x10^3/uL Absolute Monos (auto) 0.70 (0.0-1.3) x10^3/uL Absolute Nucleated RBC 0.00 (0.00-0.01) x10^3u/L Lymphocytes % 19.6 L (24.0-44.0) % Monocytes % 11.3 (0.0-12.0) % Eosinophils % 1.4 (0.00-5.0) % Basophils % 0.8 (0.0-0.4) % Absolute Granulocytes 4.13 (1.4-6.9) x10^3/uL Basophils # 0.05 (0-0.4) x10^3/uL PT 12.6 H (9.4-12.5) SECONDS INR 1.17 (0.8-3.0) APTT 26.3 (25.1-36.5) SECONDS Puncture Site pCO2 (35-45) mmHg pO2 (75-100) mmHg Base Excess (-2.0-2.0) O2 Saturation (94-100) g/dF ABG pH (7.35-7.45) ABG HCO3 (22-28) ABG O2 Sat (Measured) (95-100) % Jet Test A-a Gradient a/A Ratio Hemoglobin Carboxyhemoglobin (0.0-6.9) % THgb Methemoglobin (1.4-1.5) % Temperature C POC O2 Flow Rate % Sodium 137 (137-145) mmol/L Potassium 3.9 (3.5-5.1) mmol/L Chloride 108 H (98-107) mmol/L Carbon Dioxide 21 L (22-30) mmol/L Anion Gap 12.4 (5-15) MEQ/L BUN 25 H (9-20) mg/dL Creatinine 1.58 H (0.66-1.25) mg/dL Estimated GFR 52.0 ML/MIN Glucose 98 (74-106) mg/dL POC Glucometer (74 to 106) mg/dL Calcium 9.1 (8.4-10.2) mg/dL Total Bilirubin 0.50 (0.2-1.3) mg/dL AST 41 (17-59) U/L ALT 50 (0-50) U/L Alkaline Phosphatase 62 (38-126) U/L Troponin I (0.000-0.034) ng/mL Serum Total Protein 6.3 (6.3-8.2) g/dL Albumin 3.6 (3.5-5.0) g/dL Urine Color (Yellow) Urine Appearance (Clear) Urine pH (4.6-8.0) Ur Specific [place] (1.005-1.030) Urine Protein (Negative) Urine Glucose (UA) (Negative) mg/dL Urine Ketones (Negative) Urine Blood (Negative) Urine Nitrite (Negative) Urine Bilirubin (Negative) Urine Urobilinogen (0.2) mg/dL Ur Leukocyte Esterase (Negative) U Hyaline Cast (Auto) (0-2) /LPF Urine Microscopic RBC (0-5) /HPF Urine Microscopic WBC (0-5) /HPF Ur Epithelial Cells (None Seen) /HPF Urine Bacteria (None Seen) /HPF Urine Culture Reflexed (NO) Urine Opiates Level (NEGATIVE) Ur Methadone (NEGATIVE) Urine Barbiturates (NEGATIVE) Ur Phencyclidine (PCP) (NEGATIVE) Urine Amphetamine (NEGATIVE) U Benzodiazepine Level (NEGATIVE) Urine Cocaine (NEGATIVE) Urine Marijuana (THC) (NEGATIVE) 01/12/24 01/12/24 Range/Units 03:09 03:00 WBC (4.0-10.5) x10^3/uL RBC (4.1-5.6) x10^6/uL Hgb (12.5-18.0) g/dL Hct (42-50) % MCV (78-100) fL MCH (26-32) pg MCHC (32-36) g/dL RDW (11.5-14.0) % Plt Count (150-450) x10^3/uL MPV (7.5-11.0) fL Gran % (36.0-66.0) % Immature Gran % (Auto) (0.00-0.4) % Nucleat RBC Rel Count (0.00-0.1) % Eos # (Auto) (0-0.5) x10^3/uL Immature Gran # (Auto) (0.00-0.03) x10^3u/L Absolute Lymphs (auto) (1.0-4.6) x10^3/uL Absolute Monos (auto) (0.0-1.3) x10^3/uL Absolute Nucleated RBC (0.00-0.01) x10^3u/L Lymphocytes % (24.0-44.0) % Monocytes % (0.0-12.0) % Eosinophils % (0.00-5.0) % Basophils % (0.0-0.4) % Absolute Granulocytes (1.4-6.9) x10^3/uL Basophils # (0-0.4) x10^3/uL PT (9.4-12.5) SECONDS INR (0.8-3.0) APTT (25.1-36.5) SECONDS Puncture Site pCO2 (35-45) mmHg pO2 (75-100) mmHg Base Excess (-2.0-2.0) O2 Saturation (94-100) g/dF ABG pH (7.35-7.45) ABG HCO3 (22-28) ABG O2 Sat (Measured) (95-100) % Jet Test A-a Gradient a/A Ratio Hemoglobin Carboxyhemoglobin (0.0-6.9) % THgb Methemoglobin (1.4-1.5) % Temperature C POC O2 Flow Rate % Sodium (137-145) mmol/L Potassium (3.5-5.1) mmol/L Chloride (98-107) mmol/L Carbon Dioxide (22-30) mmol/L Anion Gap (5-15) MEQ/L BUN (9-20) mg/dL Creatinine (0.66-1.25) mg/dL Estimated GFR ML/MIN Glucose (74-106) mg/dL POC Glucometer (74 to 106) mg/dL Calcium (8.4-10.2) mg/dL Total Bilirubin (0.2-1.3) mg/dL AST (17-59) U/L ALT (0-50) U/L Alkaline Phosphatase (38-126) U/L Troponin I 0.657 H* (0.000-0.034) ng/mL Serum Total Protein (6.3-8.2) g/dL Albumin (3.5-5.0) g/dL Urine Color Yellow (Yellow) Urine Appearance Clear (Clear) Urine pH 5.0 (4.6-8.0) Ur Specific [place] >=1.030 A (1.005-1.030) Urine Protein 100 A (Negative) Urine Glucose (UA) Negative (Negative) mg/dL Urine Ketones Negative (Negative) Urine Blood NHT (Negative) Urine Nitrite Negative (Negative) Urine Bilirubin Negative (Negative) Urine Urobilinogen 1.0 A (0.2) mg/dL Ur Leukocyte Esterase Negative (Negative) U Hyaline Cast (Auto) 11-20 (0-2) /LPF Urine Microscopic RBC 3-5 (0-5) /HPF Urine Microscopic WBC 3-5 (0-5) /HPF Ur Epithelial Cells None Seen (None Seen) /HPF Urine Bacteria None Seen (None Seen) /HPF Urine Culture Reflexed YES (NO) Urine Opiates Level (NEGATIVE) Ur Methadone (NEGATIVE) Urine Barbiturates (NEGATIVE) Ur Phencyclidine (PCP) (NEGATIVE) Urine Amphetamine (NEGATIVE) U Benzodiazepine Level (NEGATIVE) Urine Cocaine (NEGATIVE) Urine Marijuana (THC) (NEGATIVE) - Progress Progress: improved Progress Note: 01/12/24 04:28 Discussed pt presentation w/ teleneurologist Dr Mijares who recommended CTA head/neck recommends not using last known normal of 02:15 as reliable as it came from unknown friend of pt pending CTA results may consider thrombectomy 01/12/24 05:25 Tele-neurology recommends giving 300mg aspirin per rectum 01/12/24 05:38 pt has began moving his right upper and lower extremities, is more arousable now but is still not responding verbally pt is visibly confused when awake, still not able to follow commands I discussed pt case w/ Dr Shields - Interventional radiologist at [facility] - he reviewed pt's CTA head/neck and stated there were no obvious clots visible and there was no intervention necessary 01/12/24 06:00 discussed possible admission w/ Dr Wisdom who recommends pt be monitored in the ER for any changes in status and have tele-neuro re-evaluate pt later today will consider admission for obs again later this AM 01/12/24 06:04 troponin elevated at 0.06, will trend troponins, pt did receive aspirin [place] Medical Desision Making - Discussion of managment Care discussed with:: hospitalist (discussed case w/ Dr Wisdom who does not believe pt fits admission criteria at this time) Reviewed:: Test results Agreed on:: need for follow-up - Risk of complications The pt has a high risk of morbidity or mortality based on: Decision regarding hospitilization or escalation of hosp level of care - Departure 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
[2024-01-12 03:44] LABS: A-aADO2 52; ABG HEMOGLOBIN 12.2; ABG POTASSIUM 4.3 (3.5-5.1); ABG SITE LEFT RADIAL; ALLEN TEST OK? YES; ARTERIAL BLD GAS O2 SATURATION 99.6 % (95-100); ARTERIAL BLOOD GAS FIO2 28 %; ARTERIAL BLOOD GAS PCO2 26 mmHg (35-45); ARTERIAL BLOOD GAS PO2 115 mmHg (75-100); ARTERIAL BLOOD GAS pH 7.46 (7.35-7.45); CARBOXYHEMOGLOBIN 1.4 % THgb (0.0-6.9); HCO3- 18.5 (22-28); HGB O2 SAT 97.2 g/dF (94-100); paO2 pAO1 0.69
[2024-01-12 03:53] LABS: Appearance Clear (Clear); Bacteria None Seen /HPF (None Seen); Bilirubin Negative (Negative); Blood NHT (Negative); Epithelial Cells None Seen /HPF (None Seen); Glucose, Urine Negative (Negative); Ketones Negative (Negative); Leukocyte Esterase Negative (Negative); Nitrite Negative (Negative); Protein,Urine Dip 100 (Negative); Specific Gravity >=1.030 (1.005-1.030)
--- NOTE | 2024-01-12 03:55 | XRAY ---
CLINICAL HISTORY: AMS, flacced right side TECHNIQUE: Axial sections of CT head examination were obtained without administration of intravenous contrast. Reformatted coronal and sagittal images were acquired. COMPARISON: None. FINDINGS: Artifacts are obscuring details and patient positioning is resulting in suboptimal evaluation. No established territorial infarction or acute intracranial hemorrhage. [place]-white matter differentiation is intact. Brain parenchymal attenuation is normal. No mass effect, midline shift, or hydrocephalus. The brainstem is obscured by artifacts. Falx and pineal region calcifications were seen. No acute calvarial abnormality was noted. Mild Mucosal thickening with possible fluid in the right maxillary sinus. Mild mucosal thickening in bilateral ethmoid sinuses. IMPRESSION: 1. No established territorial infarction or acute intracranial hemorrhage. 2. If clinically indicated, MRI [with DWI/ADC images] would be helpful for further evaluation to exclude acute infarct. [facility] at [phone] at 02:49 AM PROGRAM ENGAGEMENT DIRECTOR, 01/12/2024 and negative stroke results were verbally communicated to the Wilmer Hallman. Electronically Signed by: John Garcia MD. (01/12/2024 03:51:14 EST)
[2024-01-12 04:01] LABS: Absolute Neutrophil Ct (ANC) 4.13 x10^3/uL (1.4-6.9); BASOPHIL % 0.8 % (0.0-0.4); Basophil (Absolute #) 0.05 x10^3/uL (0-0.4); Eosinophil % 1.4 % (0.00-5.0); Eosinophil (Absolute #) 0.09 x10^3/uL (0-0.5); Hematocrit 36.6 % (42-50); Hemoglobin 11.5 g/dL (12.5-18.0); IMMATURE GRAN # 0.03 x10^3u/L (0.00-0.03); IMMATURE GRAN % 0.5 % (0.00-0.4); Lymphocyte (Absolute #) 1.22 x10^3/uL (1.0-4.6); Lymphocytes % 19.6 % (24.0-44.0); Mean Cell Volume 88.4 fL (78-100); Mean Corpuscular Hemoglobin 27.8 pg (26-32); Mean Corpuscular Hgb Concent. 31.4 g/dL (32-36); Mean Platelet Volume 9.5 fL (7.5-11.0); Monocytes % 11.3 % (0.0-12.0); Neutrophil % 66.4 % (36.0-66.0); Platelet Count 318 x10^3/uL (150-450); Red Blood Count 4.14 x10^6/uL (4.1-5.6); Red Cell Distribution Width 14.5 % (11.5-14.0); White Blood Count 6.2 x10^3/uL (4.0-10.5)
[2024-01-12 04:02] LABS: ALBUMIN 3.6 g/dL (3.5-5.0); ANION GAP 12.4 MEQ/L (5-15); BILIRUBIN,TOTAL 0.5 mg/dL (0.2-1.3); Calcium 9.1 mg/dL (8.4-10.2); Creatinine 1 1.58 mg/dL (0.66-1.25); Potassium 3.9 mmol/L (3.5-5.1); Total Protein 6.3 g/dL (6.3-8.2)
[2024-01-12 04:03] LABS: ADD URINE CULTURE? YES (NO)
[2024-01-12 04:03] LABS: Barbiturate,Urine NEGATIVE (NEGATIVE); Benzodiazepine,Urine NEGATIVE (NEGATIVE); Cocaine,Urine NEGATIVE (NEGATIVE); Methadone,Urine NEGATIVE (NEGATIVE); Opiate,Urine NEGATIVE (NEGATIVE); PCP,Urine NEGATIVE (NEGATIVE); THC,Urine NEGATIVE (NEGATIVE)
[2024-01-12 05:02] LABS: Amphetamine,Urine POSITIVE (NEGATIVE)
[2024-01-12] MEDS ORDERED: ASPIRIN RC ONE (05:25)
[2024-01-12] MEDS: ASPIRIN RC STA (05:27)
[2024-01-12 05:33] LABS: INR 1.17 (0.8-3.0); PROTIME 12.6 SECONDS (9.4-12.5); PTT 26.3 SECONDS (25.1-36.5)
--- NOTE | 2024-01-12 06:38 | XRAY ---
CLINICAL HISTORY: stroke r/o TECHNIQUE: A CT angiogram neck was performed after intravenous contrast images. Reformatted coronal and sagittal images were acquired along with the Maximum Intensity Pixel (MIP) technique. COMPARISON: None. FINDINGS: Normal common, internal and external carotid arteries. No detected areas of significant stenosis or dissection. Normal both vertebral arteries. No detected areas of significant stenosis or dissection. Normal patent basilar artery. No detected areas of significant stenosis or dissection. Pulmonary arteries are not well-opacified and partially covered. Mild right-sided pleural effusion. Scattered areas of groundglass density in bilateral lungs along with subtle nodularity in the right upper lobe. Multiple enlarged mediastinal lymph nodes the largest seen in the precarinal location measuring 1.6 x 2 cm. IMPRESSION: 1. No hemodynamically significant stenosis, evidence of aneurysm, or vascular malformation. 2. Mild right-sided pleural effusion. 3. Scattered areas of groundglass density in bilateral lungs along with subtle nodularity in the right upper lobe. 4. Multiple enlarged mediastinal lymph nodes. 5. Overall findings are suggestive of pulmonary infection. Clinical correlation and further evaluation with CT chest is advised if clinically indicated. Electronically Signed by: John Garcia MD. (01/12/2024 06:33:58 EST)
--- NOTE | 2024-01-12 06:43 | XRAY ---
CLINICAL HISTORY: stroke r/o TECHNIQUE: Head CT angiogram was performed with bolus contrast injection. Images were acquired in multiple planes and sent for interpretation through PACS. COMPARISON: CT head report of same day reviewed. FINDINGS: The internal carotid and cerebral arteries show normal caliber and course. Each carotid siphon is normal, showing no displacement or extrinsic compression. The middle and anterior cerebral arteries arise normally from the internal carotid artery on each side and appear unremarkable. Basilar and bilateral posterior cerebral arteries show normal caliber.The vertebral arteries are symmetrical and take a normal course. They show normal luminal diameter with no filling defect or caliber irregularities as far as basilar artery. 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 No significant area of vascular narrowing or dilatation was noted. No evidence of anterovenous malformation or fistulous communication was noted. The other evaluable portions of the neurocranium show no abnormalities. On bone window settings, no significant bony abnormality was detected. Mild mucosal thickening was noted in the right maxillary sinus. IMPRESSION: No significant abnormality was seen in the cranial CT angiogram. Electronically Signed by: John Garcia MD. (01/12/2024 06:38:35 EST)
[2024-01-12 07:19] LABS: INFLUENZA A NEGATIVE (NEGATIVE); INFLUENZA B NEGATIVE (NEGATIVE); RESPIRATORY SYNCTIAL VIRUS NEGATIVE (NEGATIVE); SARS-CoV-2 Xpert Express NEGATIVE (NEGATIVE)
--- NOTE | 2024-01-12 08:49 | XRAY ---
Indication: Acute mental status change. Unresponsive. Comparison: June 29, 2022 Portable chest demonstrates new cardiomegaly and pulmonary edema without consolidation/large effusion. Bony thorax intact again with mild degenerative changes.
[2024-01-12] MEDS: PHARMACY DOSING REQUIRED: VANCOMYCIN IV STA (11:20)
--- NOTE | 2024-01-12 11:24 | PCM.HP ---
History of Present Illness - Chief Complaint Chief Complaint: flaccid hemiplegia, meth abuse, elevated troponins Date: 01/12/24 History of Present Illness: is a 53 year old male with PMHX of hyperlipidemia. CHF, anxiety,HTN and GERD. He was brought to ED by EMS for right upper extremity weakness and incomprehensible speech. Last known normal was 02:15 by pt's . EMS report states that pt has hx of drug abuse including multiple illegal substances, has been poorly compliant w/ his daily meds per his . Pt is unable to respond to questions or follow commands, does withdraw to pain. Pt is maintaining airway, saturating > 95% on 2L NC. Baseline is room air. CT negative for acute process. CTA + for right pleural effusion, and appears to have an infection. Will treat for pneumonia. Antibiotics started. He has +3 pitting edema of BLLE and LUE. Echo ordered. Trops trending down. CK 472- Continue IVF. Urine + for meth. He does have DONALD. Neurology consulted in ER. MRI brain pending. Per nurse pt has not been taking any home meds there fore none in computer to restart. - Review of Systems Constitutional: No Fever, No Chills Eyes: No Symptoms Ears, Nose, & Throat: No Symptoms Respiratory: No Cough, No Short Of Breath Cardiac: Edema (BLLE and LUE), No Chest Pain, No Syncope Abdominal/Gastrointestinal: No Abdominal Pain, No Nausea, No Vomiting, No Diarrhea Genitourinary Symptoms: No Dysuria Musculoskeletal: No Back Pain, No Neck Pain Skin: No Rash Neurological: Speech Changes, Other (change in LOC), No Dizziness, No Focal Weakness, No Sensory Changes Psychological: Drug Abuse Endocrine: No Symptoms Hematologic/Lymphatic: No Symptoms Immunological/Allergic: No Symptoms Medications & Allergies Home Medications: Home Medication List No Reportable Medications [No Reported Medications] 01/12/24 [History Confirmed 01/12/24] Allergies/Adverse Reactions: Allergies Allergy/AdvReac Type Severity Reaction Status Date / Time Penicillins Allergy Verified 01/12/24 03:12 - Past Medical History Past Medical History: Yes Neurological History: No Pertinent History ENT History: No Pertinent History Cardiac History: Congestive Heart Failure, High Cholesterol, Hypertension Respiratory History: No Pertinent History Endocrine Medical History: No Pertinent History Musculoskelatal History: Degenerative Disk Disease GI Medical History: Other History: Other Pyscho-Social History: Anxiety Male Reproductive Disorders: No Pertinent History Comment: SKIN CANCER - Past Surgical History Past Surgical History: Yes Neuro Surgical History: No Pertinent History Cardiac History: No Pertinent History Respiratory Surgery: No Pertinent History GI Surgical History: No Pertinent History Genitourinary Surgical Hx: Other Musculskeletal Surgical Hx: No Pertinent History Male Surgical History: No Pertinent History Other Surgical History: cancer left arm - Social History Smoking Status: Current every day smoker Exposure to second hand smoke: Yes Alcohol: None Drug Use: methamphetamines - Social Determinants of Health Will the patient participate in the screening: Unable to obtain - Physical Exam Vital Signs: Vital Signs - 24 hr Temp Pulse Resp BP BP Pulse Ox 01/12/24 09:42 96 01/12/24 09:11 96.3 F 110 H 20 145/88 100 01/12/24 08:30 98.1 F 101 H 23 102/73 100 01/12/24 08:00 98.1 F 102 H 22 116/73 99 01/12/24 07:31 98.1 F 102 H 23 112/90 97 01/12/24 07:01 98.1 F 102 H 22 122/85 99 01/12/24 06:30 98.1 F 98 H 21 130/97 98 01/12/24 06:00 98.2 F 101 H 22 134/95 98 01/12/24 05:34 98.2 F 105 H 27 H 130/87 97 01/12/24 05:33 98.1 F 109 H 18 98 01/12/24 05:10 98.1 F 101 H 14 124/86 100 01/12/24 05:09 97.9 F 105 H 27 H 100 01/12/24 04:30 98.2 F 98 H 24 97/66 98 01/12/24 04:00 98.2 F 99 H 23 110/74 98 01/12/24 03:09 98.1 F 109 H 31 H 110/84 99 General Appearance: no apparent distress, obese Neurologic Exam: other (unresponsive), No motor deficits Eye Exam: PERRL/EOMI, eyes nml inspection Ears, Nose, Throat Exam: normal ENT inspection, TMs normal, pharynx normal, moist mucous membranes Neck Exam: normal inspection, non-tender, supple, full range of motion Respiratory Exam: normal breath sounds, lungs clear, No respiratory distress Cardiovascular Exam: regular rate/rhythm, normal heart sounds, normal peripheral pulses, tachycardia, edema (+ 3 pitting edema BLLE and LUE) Gastrointestinal/Abdomen Exam: soft, normal bowel sounds, distention, No tenderness, No mass Back Exam: normal inspection, normal range of motion, No CVA tenderness, No vertebral tenderness Extremity Exam: normal inspection, normal range of motion, pelvis stable Skin Exam: normal color, warm, dry, No rash Lymphatic Exam: No adenopathy Results - Labs Lab/Micro Results: Lab Results-Last 24 Hours 01/12/24 01/12/24 01/12/24 Range/Units 03:00 03:09 03:29 WBC 6.2 (4.0-10.5) x10^3/uL RBC 4.14 (4.1-5.6) x10^6/uL Hgb 11.5 L (12.5-18.0) g/dL Hct 36.6 L (42-50) % MCV 88.4 (78-100) fL MCH 27.8 (26-32) pg MCHC 31.4 L (32-36) g/dL RDW 14.5 H (11.5-14.0) % Plt Count 318 (150-450) x10^3/uL MPV 9.5 (7.5-11.0) fL Gran % 66.4 H (36.0-66.0) % Immature Gran % (Auto) 0.5 H (0.00-0.4) % Nucleat RBC Rel Count 0.0 (0.00-0.1) % Eos # (Auto) 0.09 (0-0.5) x10^3/uL Immature Gran # (Auto) 0.03 (0.00-0.03) x10^3u/L Absolute Lymphs (auto) 1.22 (1.0-4.6) x10^3/uL Absolute Monos (auto) 0.70 (0.0-1.3) x10^3/uL Absolute Nucleated RBC 0.00 (0.00-0.01) x10^3u/L Lymphocytes % 19.6 L (24.0-44.0) % Monocytes % 11.3 (0.0-12.0) % Eosinophils % 1.4 (0.00-5.0) % Basophils % 0.8 (0.0-0.4) % Absolute Granulocytes 4.13 (1.4-6.9) x10^3/uL Basophils # 0.05 (0-0.4) x10^3/uL PT (9.4-12.5) SECONDS INR (0.8-3.0) APTT (25.1-36.5) SECONDS Puncture Site pCO2 (35-45) mmHg pO2 (75-100) mmHg Base Excess (-2.0-2.0) O2 Saturation (94-100) g/dF ABG pH (7.35-7.45) ABG HCO3 (22-28) ABG O2 Sat (Measured) (95-100) % Jet Test A-a Gradient a/A Ratio Hemoglobin Carboxyhemoglobin (0.0-6.9) % THgb Methemoglobin (1.4-1.5) % Temperature C POC O2 Flow Rate % Sodium (137-145) mmol/L Potassium (3.5-5.1) mmol/L Chloride (98-107) mmol/L Carbon Dioxide (22-30) mmol/L Anion Gap (5-15) MEQ/L BUN (9-20) mg/dL Creatinine (0.66-1.25) mg/dL Estimated GFR ML/MIN Glucose (74-106) mg/dL POC Glucometer (74 to 106) mg/dL Calcium (8.4-10.2) mg/dL Total Bilirubin (0.2-1.3) mg/dL AST (17-59) U/L ALT (0-50) U/L Alkaline Phosphatase (38-126) U/L Creatine Kinase (55-170) U/L Troponin I 0.657 H* (0.000-0.034) ng/mL Serum Total Protein (6.3-8.2) g/dL Albumin (3.5-5.0) g/dL Urine Color Yellow (Yellow) Urine Appearance Clear (Clear) Urine pH 5.0 (4.6-8.0) Ur Specific [place] >=1.030 A (1.005-1.030) Urine Protein 100 A (Negative) Urine Glucose (UA) Negative (Negative) mg/dL Urine Ketones Negative (Negative) Urine Blood NHT (Negative) Urine Nitrite Negative (Negative) Urine Bilirubin Negative (Negative) Urine Urobilinogen 1.0 A (0.2) mg/dL Ur Leukocyte Esterase Negative (Negative) U Hyaline Cast (Auto) 11-20 (0-2) /LPF Urine Microscopic RBC 3-5 (0-5) /HPF Urine Microscopic WBC 3-5 (0-5) /HPF Ur Epithelial Cells None Seen (None Seen) /HPF Urine Bacteria None Seen (None Seen) /HPF Urine Culture Reflexed YES (NO) Urine Opiates Level (NEGATIVE) Ur Methadone (NEGATIVE) Urine Barbiturates (NEGATIVE) Ur Phencyclidine (PCP) (NEGATIVE) Urine Amphetamine (NEGATIVE) U Benzodiazepine Level (NEGATIVE) Urine Cocaine (NEGATIVE) Urine Marijuana (THC) (NEGATIVE) Influenza Type A Ag (NEGATIVE) Influenza Type B Ag (NEGATIVE) RSV (PCR) (NEGATIVE) SARS-CoV-2 (PCR) (NEGATIVE) 01/12/24 01/12/24 01/12/24 Range/Units 03:29 03:29 03:29 WBC (4.0-10.5) x10^3/uL RBC (4.1-5.6) x10^6/uL Hgb (12.5-18.0) g/dL Hct (42-50) % MCV (78-100) fL MCH (26-32) pg MCHC (32-36) g/dL RDW (11.5-14.0) % Plt Count (150-450) x10^3/uL MPV (7.5-11.0) fL Gran % (36.0-66.0) % Immature Gran % (Auto) (0.00-0.4) % Nucleat RBC Rel Count (0.00-0.1) % Eos # (Auto) (0-0.5) x10^3/uL Immature Gran # (Auto) (0.00-0.03) x10^3u/L Absolute Lymphs (auto) (1.0-4.6) x10^3/uL Absolute Monos (auto) (0.0-1.3) x10^3/uL Absolute Nucleated RBC (0.00-0.01) x10^3u/L Lymphocytes % (24.0-44.0) % Monocytes % (0.0-12.0) % Eosinophils % (0.00-5.0) % Basophils % (0.0-0.4) % Absolute Granulocytes (1.4-6.9) x10^3/uL Basophils # (0-0.4) x10^3/uL PT 12.6 H (9.4-12.5) SECONDS INR 1.17 (0.8-3.0) APTT 26.3 (25.1-36.5) SECONDS Puncture Site pCO2 (35-45) mmHg pO2 (75-100) mmHg Base Excess (-2.0-2.0) O2 Saturation (94-100) g/dF ABG pH (7.35-7.45) ABG HCO3 (22-28) ABG O2 Sat (Measured) (95-100) % Jet Test A-a Gradient a/A Ratio Hemoglobin Carboxyhemoglobin (0.0-6.9) % THgb Methemoglobin (1.4-1.5) % Temperature C POC O2 Flow Rate % Sodium 137 (137-145) mmol/L Potassium 3.9 (3.5-5.1) mmol/L Chloride 108 H (98-107) mmol/L Carbon Dioxide 21 L (22-30) mmol/L Anion Gap 12.4 (5-15) MEQ/L BUN 25 H (9-20) mg/dL Creatinine 1.58 H (0.66-1.25) mg/dL Estimated GFR 52.0 ML/MIN Glucose 98 (74-106) mg/dL POC Glucometer (74 to 106) mg/dL Calcium 9.1 (8.4-10.2) mg/dL Total Bilirubin 0.50 (0.2-1.3) mg/dL AST 41 (17-59) U/L ALT 50 (0-50) U/L Alkaline Phosphatase 62 (38-126) U/L Creatine Kinase (55-170) U/L Troponin I (0.000-0.034) ng/mL Serum Total Protein 6.3 (6.3-8.2) g/dL Albumin 3.6 (3.5-5.0) g/dL Urine Color (Yellow) Urine Appearance (Clear) Urine pH (4.6-8.0) Ur Specific [place] (1.005-1.030) Urine Protein (Negative) Urine Glucose (UA) (Negative) mg/dL Urine Ketones (Negative) Urine Blood (Negative) Urine Nitrite (Negative) Urine Bilirubin (Negative) Urine Urobilinogen (0.2) mg/dL Ur Leukocyte Esterase (Negative) U Hyaline Cast (Auto) (0-2) /LPF Urine Microscopic RBC (0-5) /HPF Urine Microscopic WBC (0-5) /HPF Ur Epithelial Cells (None Seen) /HPF Urine Bacteria (None Seen) /HPF Urine Culture Reflexed (NO) Urine Opiates Level NEGATIVE (NEGATIVE) Ur Methadone NEGATIVE (NEGATIVE) Urine Barbiturates NEGATIVE (NEGATIVE) Ur Phencyclidine (PCP) NEGATIVE (NEGATIVE) Urine Amphetamine POSITIVE A (NEGATIVE) U Benzodiazepine Level NEGATIVE (NEGATIVE) Urine Cocaine NEGATIVE (NEGATIVE) Urine Marijuana (THC) NEGATIVE (NEGATIVE) Influenza Type A Ag (NEGATIVE) Influenza Type B Ag (NEGATIVE) RSV (PCR) (NEGATIVE) SARS-CoV-2 (PCR) (NEGATIVE) 01/12/24 01/12/24 01/12/24 Range/Units 03:37 03:40 05:07 WBC (4.0-10.5) x10^3/uL RBC (4.1-5.6) x10^6/uL Hgb (12.5-18.0) g/dL Hct (42-50) % MCV (78-100) fL MCH (26-32) pg MCHC (32-36) g/dL RDW (11.5-14.0) % Plt Count (150-450) x10^3/uL MPV (7.5-11.0) fL Gran % (36.0-66.0) % Immature Gran % (Auto) (0.00-0.4) % Nucleat RBC Rel Count (0.00-0.1) % Eos # (Auto) (0-0.5) x10^3/uL Immature Gran # (Auto) (0.00-0.03) x10^3u/L Absolute Lymphs (auto) (1.0-4.6) x10^3/uL Absolute Monos (auto) (0.0-1.3) x10^3/uL Absolute Nucleated RBC (0.00-0.01) x10^3u/L Lymphocytes % (24.0-44.0) % Monocytes % (0.0-12.0) % Eosinophils % (0.00-5.0) % Basophils % (0.0-0.4) % Absolute Granulocytes (1.4-6.9) x10^3/uL Basophils # (0-0.4) x10^3/uL PT (9.4-12.5) SECONDS INR (0.8-3.0) APTT (25.1-36.5) SECONDS Puncture Site LEFT RADIAL pCO2 26 L (35-45) mmHg pO2 115 H (75-100) mmHg Base Excess -4.0 L (-2.0-2.0) O2 Saturation 97.2 (94-100) g/dF ABG pH 7.46 H (7.35-7.45) ABG HCO3 18.5 L (22-28) ABG O2 Sat (Measured) 99.6 (95-100) % Jet Test YES A-a Gradient 52 a/A Ratio 0.69 Hemoglobin 12.2 Carboxyhemoglobin 1.4 (0.0-6.9) % THgb Methemoglobin 1.0 L (1.4-1.5) % Temperature 37.0 C POC O2 Flow Rate 28 % Sodium (137-145) mmol/L Potassium 4.3 (3.5-5.1) mmol/L Chloride (98-107) mmol/L Carbon Dioxide (22-30) mmol/L Anion Gap (5-15) MEQ/L BUN (9-20) mg/dL Creatinine (0.66-1.25) mg/dL Estimated GFR ML/MIN Glucose (74-106) mg/dL POC Glucometer 107 H (74 to 106) mg/dL Calcium (8.4-10.2) mg/dL Total Bilirubin (0.2-1.3) mg/dL AST (17-59) U/L ALT (0-50) U/L Alkaline Phosphatase (38-126) U/L Creatine Kinase 472 H (55-170) U/L Troponin I (0.000-0.034) ng/mL Serum Total Protein (6.3-8.2) g/dL Albumin (3.5-5.0) g/dL Urine Color (Yellow) Urine Appearance (Clear) Urine pH (4.6-8.0) Ur Specific [place] (1.005-1.030) Urine Protein (Negative) Urine Glucose (UA) (Negative) mg/dL Urine Ketones (Negative) Urine Blood (Negative) Urine Nitrite (Negative) Urine Bilirubin (Negative) Urine Urobilinogen (0.2) mg/dL Ur Leukocyte Esterase (Negative) U Hyaline Cast (Auto) (0-2) /LPF Urine Microscopic RBC (0-5) /HPF Urine Microscopic WBC (0-5) /HPF Ur Epithelial Cells (None Seen) /HPF Urine Bacteria (None Seen) /HPF Urine Culture Reflexed (NO) Urine Opiates Level (NEGATIVE) Ur Methadone (NEGATIVE) Urine Barbiturates (NEGATIVE) Ur Phencyclidine (PCP) (NEGATIVE) Urine Amphetamine (NEGATIVE) U Benzodiazepine Level (NEGATIVE) Urine Cocaine (NEGATIVE) Urine Marijuana (THC) (NEGATIVE) Influenza Type A Ag (NEGATIVE) Influenza Type B Ag (NEGATIVE) RSV (PCR) (NEGATIVE) SARS-CoV-2 (PCR) (NEGATIVE) 01/12/24 01/12/24 01/12/24 Range/Units 06:40 07:30 09:15 WBC (4.0-10.5) x10^3/uL RBC (4.1-5.6) x10^6/uL Hgb (12.5-18.0) g/dL Hct (42-50) % MCV (78-100) fL MCH (26-32) pg MCHC (32-36) g/dL RDW (11.5-14.0) % Plt Count (150-450) x10^3/uL MPV (7.5-11.0) fL Gran % (36.0-66.0) % Immature Gran % (Auto) (0.00-0.4) % Nucleat RBC Rel Count (0.00-0.1) % Eos # (Auto) (0-0.5) x10^3/uL Immature Gran # (Auto) (0.00-0.03) x10^3u/L Absolute Lymphs (auto) (1.0-4.6) x10^3/uL Absolute Monos (auto) (0.0-1.3) x10^3/uL Absolute Nucleated RBC (0.00-0.01) x10^3u/L Lymphocytes % (24.0-44.0) % Monocytes % (0.0-12.0) % Eosinophils % (0.00-5.0) % Basophils % (0.0-0.4) % Absolute Granulocytes (1.4-6.9) x10^3/uL Basophils # (0-0.4) x10^3/uL PT (9.4-12.5) SECONDS INR (0.8-3.0) APTT (25.1-36.5) SECONDS Puncture Site pCO2 (35-45) mmHg pO2 (75-100) mmHg Base Excess (-2.0-2.0) O2 Saturation (94-100) g/dF ABG pH (7.35-7.45) ABG HCO3 (22-28) ABG O2 Sat (Measured) (95-100) % Jet Test A-a Gradient a/A Ratio Hemoglobin Carboxyhemoglobin (0.0-6.9) % THgb Methemoglobin (1.4-1.5) % Temperature C POC O2 Flow Rate % Sodium (137-145) mmol/L Potassium (3.5-5.1) mmol/L Chloride (98-107) mmol/L Carbon Dioxide (22-30) mmol/L Anion Gap (5-15) MEQ/L BUN (9-20) mg/dL Creatinine (0.66-1.25) mg/dL Estimated GFR ML/MIN Glucose (74-106) mg/dL POC Glucometer 114 H (74 to 106) mg/dL Calcium (8.4-10.2) mg/dL Total Bilirubin (0.2-1.3) mg/dL AST (17-59) U/L ALT (0-50) U/L Alkaline Phosphatase (38-126) U/L Creatine Kinase (55-170) U/L Troponin I 0.504 H* (0.000-0.034) ng/mL Serum Total Protein (6.3-8.2) g/dL Albumin (3.5-5.0) g/dL Urine Color (Yellow) Urine Appearance (Clear) Urine pH (4.6-8.0) Ur Specific [place] (1.005-1.030) Urine Protein (Negative) Urine Glucose (UA) (Negative) mg/dL Urine Ketones (Negative) Urine Blood (Negative) Urine Nitrite (Negative) Urine Bilirubin (Negative) Urine Urobilinogen (0.2) mg/dL Ur Leukocyte Esterase (Negative) U Hyaline Cast (Auto) (0-2) /LPF Urine Microscopic RBC (0-5) /HPF Urine Microscopic WBC (0-5) /HPF Ur Epithelial Cells (None Seen) /HPF Urine Bacteria (None Seen) /HPF Urine Culture Reflexed (NO) Urine Opiates Level (NEGATIVE) Ur Methadone (NEGATIVE) Urine Barbiturates (NEGATIVE) Ur Phencyclidine (PCP) (NEGATIVE) Urine Amphetamine (NEGATIVE) U Benzodiazepine Level (NEGATIVE) Urine Cocaine (NEGATIVE) Urine Marijuana (THC) (NEGATIVE) Influenza Type A Ag NEGATIVE (NEGATIVE) Influenza Type B Ag NEGATIVE (NEGATIVE) RSV (PCR) NEGATIVE (NEGATIVE) SARS-CoV-2 (PCR) NEGATIVE (NEGATIVE) Microbiology 01/12/24 03:29 Urine Culture - Preliminary Urine, Void NO GROWTH TO DATE Accuchecks Date 01/12/24 Time 03:37 - Radiology Impressions Radiology Exams & Impressions: Radiology Procedures Category Date Time Status CHEST 1 VIEW (PORTABLE) Stat Exams 01/12/24 03:[address] ANGIOGRAPHY NECK [CT] Stat Exams 01/12/24 03:50 Completed CTA HEAD W AND/OR WO CONTRAST [CT] Stat Exams 01/12/24 03:50 Completed ECHO W/2D AND DOPPLER [US] Routine Exams 01/12/24 10:02 Taken HEAD WITHOUT CONTRAST [CT] Stat Exams 01/12/24 03:21 Completed MRI BRAIN W/O CONTRAST [MRI] Routine Exams 01/12/24 10:02 Ordered - Other Procedures and Tests Respiratory Therapy 01/12/24 08:43 Oxygen Nasal Cannula 2 lpm Assessment/Plan (1) Pneumonia Current Visit: Yes Status: Acute Assessment & Plan: - CT angiography IMPRESSION: 1. No hemodynamically significant stenosis, evidence of aneurysm, or vascular malformation. 2. Mild right-sided pleural effusion. 3. Scattered areas of groundglass density in bilateral lungs along with subtle nodularity in the right upper lobe. 4. Multiple enlarged mediastinal lymph nodes. 5. Overall findings are suggestive of pulmonary infection. Clinical correlation and further evaluation with CT chest is advised if clinically indicated. - Antibiotics, breathing txs, steriods - O2 2lNC 100%- wean Code(s): J18.9 - PNEUMONIA, UNSPECIFIED ORGANISM (2) Unresponsiveness Current Visit: Yes Status: Acute Assessment & Plan: - 2:2 meth use - bustamante - neuro eval - CT head negative for acute concern - MRI brain pending - pt starting to wake up this afternoon and talking. - ST eval (3) DONALD (acute kidney injury) Current Visit: Yes Status: Acute Assessment & Plan: - creat 1.58- Baseline 1.11- normal - IVF Code(s): N17.9 - ACUTE KIDNEY FAILURE, UNSPECIFIED (4) Pleural effusion Current Visit: Yes Status: Acute Assessment & Plan: - as seen on CT 2:2 CHF - echo -lasix - 2lNC 100%- wean Code(s): J90 - PLEURAL EFFUSION, NOT ELSEWHERE CLASSIFIED (5) CHF (congestive heart failure) Current Visit: Yes Status: Acute Assessment & Plan: - 2lNC - Echo EF per product technician 37.5 - BNP 9530 - edema of BLLE, and left arm, abd. edema. - lasix IV BID - EF 37.5% per product technician - cardiology consult - Start coreg 3.125mg BID - Continue lasix - Consider adding lisinopril if DONALD improves Code(s): I50.9 - HEART FAILURE, UNSPECIFIED (6) Amphetamine abuse Current Visit: Yes Status: Acute Assessment & Plan: - Per lab results - advised cessation - echo Code(s): F15.10 - OTHER STIMULANT ABUSE, UNCOMPLICATED (7) Elevated troponin Current Visit: Yes Status: Acute Assessment & Plan: - trop 0.657, 0.504, 0.438- trending down - trend - echo - 2:2 CHF exacerbation Code(s): R79.89 - OTHER SPECIFIED ABNORMAL FINDINGS OF BLOOD CHEMISTRY (8) Depression Current Visit: No Status: Chronic Qualifiers: Depression Type: major depressive disorder Major depression recurrence: recurrent Active/Remission status: currently active Major depression episode severity: moderate Qualified Code(s): F33.1 - Major depressive disorder, recurrent, moderate Assessment & Plan: - not taking any meds - denies homicidal or suicidal ideation. Code(s): F32.A - DEPRESSION, UNSPECIFIED (9) Edema of extremities Current Visit: Yes Status: Acute Assessment & Plan: - venous duplex BLLE negative - VD of LUE pending Code(s): R60.0 - LOCALIZED EDEMA (10) Elevated CK Current Visit: Yes Status: Acute Assessment & Plan: - 2:2 meth use, pneumonia, DONALD - unable to give IVF due to edema and CHF (11) D-dimer, elevated Current Visit: Yes Status: Acute Assessment & Plan: - d-dimer 1.47 - Therapeutic lovenox - Consider CTA if DONALD improves - not awake enough to do VQ scan at this time. Code(s): R79.89 - OTHER SPECIFIED ABNORMAL FINDINGS OF BLOOD CHEMISTRY (12) Obesity (BMI 30-39.9) Current Visit: Yes Status: Acute Assessment & Plan: - heart healthy diet when able to eat VTE: Lovenox Next of KIN: D/C plan: 2-3 days Code status: Full Code(s): E66.9 - OBESITY, UNSPECIFIED
[2024-01-12] MEDS: LEVOFLOXACIN 750MG/150ML D5W 750 MG/150 ML BAG IV SCH (12:05)
[2024-01-12] MEDS: Lasix 20 MG/2 ML IV SCH (12:05)
[2024-01-12 13:15] LABS: ETHYL ALCOHOL < 10 mg/dL (0-10)
[2024-01-12 13:41] LABS: NT PRO BNPII 9530 pg/mL (<300)
[2024-01-12] MEDS: VANCOMYCIN 1 GRAM/200 ML BAG 1 GM/200 ML PIGGYBACK IV SCH (13:41)
--- NOTE | 2024-01-12 14:07 | XRAY ---
Indication: Bilateral edema. Two-dimensional sonogram and color Doppler imaging major venous vessels left and right leg performed. Comparison: June 29, 2022 No thrombus seen in the examined deep venous vessels left and right leg including greater saphenous vein. Veins demonstrate normal compressibility. Venous waveforms are normal with and without augmentation. Impression: Left and right legs continue to be negative for DVT.
[2024-01-12] MEDS: ENOXAPARIN SODIUM SQ SCH ×2 (16:31→21:32)
[2024-01-12] MEDS ORDERED: Coreg 3.125 MG ONE (16:53)
[2024-01-12] MEDS: Coreg 3.125 MG PO SCH (16:55)
--- NOTE | 2024-01-12 16:59 | XRAY ---
Indication: Left upper extremity edema/swelling. Two-dimensional sonogram and color Doppler imaging major venous vessels left upper extremity performed. Comparison: None No thrombus seen in the visualized left internal jugular, subclavian, axillary, basilic, cephalic, brachial, radial, and ulnar veins. Veins demonstrate normal compressibility and normal venous waveforms. Impression: Left upper extremity negative for venous thrombosis. Comment: Preliminary report was given.
[2024-01-12] MEDS ORDERED: Xopenex 1.25 MG/0.5 ML UD NEBULE IH SCH (19:00)
[2024-01-12] MEDS: solu-MEDROL 20 MG, Sterile H2O 10 ml 1 ML IV SCH (21:32)
[2024-01-13 06:57] LABS: Hematocrit 38.8 % (42-50); Hemoglobin 12.2 g/dL (12.5-18.0); Mean Cell Volume 87.2 fL (78-100); Mean Corpuscular Hemoglobin 27.4 pg (26-32); Mean Corpuscular Hgb Concent. 31.4 g/dL (32-36); Mean Platelet Volume 9.6 fL (7.5-11.0); Platelet Count 356 x10^3/uL (150-450); Red Blood Count 4.45 x10^6/uL (4.1-5.6); Red Cell Distribution Width 14.6 % (11.5-14.0); White Blood Count 9.6 x10^3/uL (4.0-10.5)
[2024-01-13 07:06] LABS: ALBUMIN 3.7 g/dL (3.5-5.0); ANION GAP 16.7 MEQ/L (5-15); BILIRUBIN,TOTAL 0.7 mg/dL (0.2-1.3); Calcium 9.2 mg/dL (8.4-10.2); Creatinine 1 1.27 mg/dL (0.66-1.25); EST GLOMERULAR FILTRATION RATE 67.6 ML/MIN; Potassium 4.5 mmol/L (3.5-5.1); Total Protein 6.4 g/dL (6.3-8.2)
--- NOTE | 2024-01-13 09:31 | XRAY ---
Indication: Elevated d-dimer. Recent bilateral lower extremity and left upper extremity venous ultrasound negative for DVT. Multiple contiguous axial images obtained through the chest using 100 cc Isovue 370 contrast and PE protocol. Comparison: None. Good opacification of the pulmonary arteries to include the lobar and segmental branches. No pulmonary embolus. Heart is enlarged. Aorta is normal in course and caliber. No pathologic mediastinal/hilar lymphadenopathy. Lungs demonstrates mild scattered bilateral patchy groundglass airspace disease greatest left lower lobe. Also small right and tiny left effusions. Bony thorax intact with minimal degenerative changes throughout the spine. Limited upper abdomen including adrenal glands are unremarkable. Impression: 1. Negative pulmonary embolus. 2. Bilateral patchy groundglass airspace disease. 3. Cardiomegaly and small right/tiny left effusions. Rule out cardiac decompensation/CHF versus fluid overload.
[2024-01-13] MEDS: Coreg PO SCH (10:27)
--- NOTE | 2024-01-13 11:41 | PCM.NOTE ---
Date and Time: 01/13/24 1135 Subjective Assessment: 01/12/24 is a 53 year old male with PMHX of hyperlipidemia. CHF, anxiety,HTN and GERD. He was brought to ED by EMS for right upper extremity weakness and incomprehensible speech. Last known normal was 02:15 by pt's . EMS report states that pt has hx of drug abuse including multiple illegal substances, has been poorly compliant w/ his daily meds per his . Pt is unable to respond to questions or follow commands, does withdraw to pain. Pt is maintaining airway, saturating > 95% on 2L NC. Baseline is room air. CT negative for acute process. CTA + for right pleural effusion, and appears to have an infection. Will treat for pneumonia. Antibiotics started. He has +3 pitting edema of BLLE and LUE. Echo ordered. Trops trending down. CK 472- Continue IVF. Urine + for meth. He does have DONALD. Neurology consulted in ER. MRI brain pending. Per nurse pt has not been taking any home meds there fore none in computer to restart. 01/13/24 Pt resting in bed. He is much more awake and alert today. Cardiology consulted today with recommendations and orders. Awaiting MRI of brain as machine went down yesterday. It has since been fixed today. CTA pending for elevated D-dimer eval. DONALD improved. He is refusing drug rehab. Continue antibiotics for pneumonia. Heart rate increase so coreg increased. He dneis CP, SOB, abd. pain, N/V/D. He continues to have BLLE and left arm edema. Unna boots to be placed by PT on BLLE. Legs and arm to be elevated. - Review of Systems Constitutional: No Fever, No Chills Eyes: No Symptoms Ears, Nose, & Throat: No Symptoms Respiratory: No Cough, No Short Of Breath Cardiac: Edema (BLLE and LUE), No Chest Pain, No Syncope Abdominal/Gastrointestinal: No Abdominal Pain, No Nausea, No Vomiting, No Diarrhea Genitourinary Symptoms: No Dysuria Musculoskeletal: No Back Pain, No Neck Pain Skin: No Rash Neurological: No Dizziness, No Focal Weakness, No Sensory Changes Psychological: No Symptoms Endocrine: No Symptoms Hematologic/Lymphatic: No Symptoms Immunological/Allergic: No Symptoms Objective Exam General Appearance: no apparent distress, alert, obese Neurologic Exam: alert, oriented x 3, cooperative, normal mood/affect, nml cerebellar function, sensation nml, No motor deficits Skin Exam: normal color, warm, dry Eye Exam: PERRL, EOMI, eyes nml inspection Ears, Nose, Throat Exam: normal ENT inspection, pharynx normal, moist mucous membranes Neck Exam: normal inspection, non-tender, supple, full range of motion Respiratory Exam: normal breath sounds, lungs clear, No respiratory distress Cardiovascular Exam: regular rate/rhythm, normal heart sounds Gastrointestinal/Abdomen Exam: soft, No tenderness, No mass Extremity Exam: normal inspection, normal range of motion, swelling (BLLE and LUE) Back Exam: normal inspection, normal range of motion, No CVA tenderness, No vertebral tenderness Male Genitalia Exam: deferred Rectal Exam: deferred OBJECTIVE DATA Vital Signs: Vital Signs - 24 hr Temp Pulse Resp BP Pulse Ox 01/13/24 08:00 97.5 F 109 H 20 138/85 97 01/13/24 07:05 98 01/13/24 04:00 98.6 F 124 H 20 139/75 99 01/12/24 23:21 98.4 F 99 H 16 111/84 98 01/12/24 19:03 97.5 F 112 H 18 108/65 96 01/12/24 18:50 94 L 01/12/24 15:56 97.8 F 97 H 16 141/102 97 01/12/24 12:00 97.7 F 68 17 133/81 99 Pain Assessment - Last Documented Pain Intensity 0 Intake and Output: Intake & Output 01/10/24 01/11/24 01/12/24 01/13/24 11:59 11:59 11:59 11:59 Intake Total 660 Output Total 60 1550 Balance -60 -890 Weight 104.9 kg Lab Results: Lab Results-Last 24 Hours 01/12/24 01/12/24 01/12/24 Range/Units 11:46 12:05 12:42 WBC (4.0-10.5) x10^3/uL RBC (4.1-5.6) x10^6/uL Hgb (12.5-18.0) g/dL Hct (42-50) % MCV (78-100) fL MCH (26-32) pg MCHC (32-36) g/dL RDW (11.5-14.0) % Plt Count (150-450) x10^3/uL MPV (7.5-11.0) fL D-Dimer (0.0-0.50) mg/L Sodium (137-145) mmol/L Potassium (3.5-5.1) mmol/L Chloride (98-107) mmol/L Carbon Dioxide (22-30) mmol/L Anion Gap (5-15) MEQ/L BUN (9-20) mg/dL Creatinine (0.66-1.25) mg/dL Estimated GFR ML/MIN Glucose (74-106) mg/dL POC Glucometer 85 (74 to 106) mg/dL Lactic Acid (0.4-2.0) Calcium (8.4-10.2) mg/dL Total Bilirubin (0.2-1.3) mg/dL AST (17-59) U/L ALT (0-50) U/L Alkaline Phosphatase (38-126) U/L Troponin I 0.438 H* (0.000-0.034) ng/mL NT-Pro-B Natriuret Pep 9530 (<300) pg/mL Serum Total Protein (6.3-8.2) g/dL Albumin (3.5-5.0) g/dL Ethyl Alcohol < 10 (0-10) mg/dL 01/12/24 01/12/24 01/13/24 Range/Units 12:58 13:15 06:25 WBC 9.6 (4.0-10.5) x10^3/uL RBC 4.45 (4.1-5.6) x10^6/uL Hgb 12.2 L (12.5-18.0) g/dL Hct 38.8 L (42-50) % MCV 87.2 (78-100) fL MCH 27.4 (26-32) pg MCHC 31.4 L (32-36) g/dL RDW 14.6 H (11.5-14.0) % Plt Count 356 (150-450) x10^3/uL MPV 9.6 (7.5-11.0) fL D-Dimer 1.47 H* (0.0-0.50) mg/L Sodium (137-145) mmol/L Potassium (3.5-5.1) mmol/L Chloride (98-107) mmol/L Carbon Dioxide (22-30) mmol/L Anion Gap (5-15) MEQ/L BUN (9-20) mg/dL Creatinine (0.66-1.25) mg/dL Estimated GFR ML/MIN Glucose (74-106) mg/dL POC Glucometer (74 to 106) mg/dL Lactic Acid 1.0 (0.4-2.0) Calcium (8.4-10.2) mg/dL Total Bilirubin (0.2-1.3) mg/dL AST (17-59) U/L ALT (0-50) U/L Alkaline Phosphatase (38-126) U/L Troponin I (0.000-0.034) ng/mL NT-Pro-B Natriuret Pep (<300) pg/mL Serum Total Protein (6.3-8.2) g/dL Albumin (3.5-5.0) g/dL Ethyl Alcohol (0-10) mg/dL 01/13/24 Range/Units 06:25 WBC (4.0-10.5) x10^3/uL RBC (4.1-5.6) x10^6/uL Hgb (12.5-18.0) g/dL Hct (42-50) % MCV (78-100) fL MCH (26-32) pg MCHC (32-36) g/dL RDW (11.5-14.0) % Plt Count (150-450) x10^3/uL MPV (7.5-11.0) fL D-Dimer (0.0-0.50) mg/L Sodium 136 L (137-145) mmol/L Potassium 4.5 (3.5-5.1) mmol/L Chloride 105 (98-107) mmol/L Carbon Dioxide 18 L (22-30) mmol/L Anion Gap 16.7 H (5-15) MEQ/L BUN 22 H (9-20) mg/dL Creatinine 1.27 H (0.66-1.25) mg/dL Estimated GFR 67.6 ML/MIN Glucose 128 H (74-106) mg/dL POC Glucometer (74 to 106) mg/dL Lactic Acid (0.4-2.0) Calcium 9.2 (8.4-10.2) mg/dL Total Bilirubin 0.70 (0.2-1.3) mg/dL AST 53 (17-59) U/L ALT 85 H (0-50) U/L Alkaline Phosphatase 64 (38-126) U/L Troponin I (0.000-0.034) ng/mL NT-Pro-B Natriuret Pep (<300) pg/mL Serum Total Protein 6.4 (6.3-8.2) g/dL Albumin 3.7 (3.5-5.0) g/dL Ethyl Alcohol (0-10) mg/dL Radiology Exams: Radiology Procedures Category Date Time Status CHEST 1 VIEW (PORTABLE) Stat Exams 01/12/24 03:22 Completed CHEST WITH CONTRAST [CT] Routine Exams 01/13/24 08:[address] ANGIOGRAPHY NECK [CT] Stat Exams 01/12/24 03:50 Completed CTA HEAD W AND/OR WO CONTRAST [CT] Stat Exams 01/12/24 03:50 Completed ECHO W/2D AND DOPPLER [US] Routine Exams 01/12/24 10:02 Taken HEAD WITHOUT CONTRAST [CT] Stat Exams 01/12/24 03:21 Completed MRI BRAIN W/O CONTRAST [MRI] Routine Exams 01/13/24 08:00 Ordered VENOUS BILATERAL EXTREMITY [US] Routine Exams 01/12/24 12:49 Completed VENOUS UNILAT/LIMITED EXTREMIT [US] Routine Exams 01/12/24 15:48 Completed Multi-Disciplinary Progress Notes: Multi-Disciplinary Progress Notes 01/12/24 13:22 Case Management Note by Sadie Niño UNABLE TO S/W PATIENT AT THIS TIME REGARDING DC/HOME NEEDS D/T CURRENT MENTAL STATUS. Initialized on 01/12/24 13:22 - END OF NOTE Assessment/Plan (1) Pneumonia Current Visit: Yes Status: Acute Code(s): J18.9 - PNEUMONIA, UNSPECIFIED ORGANISM (2) Unresponsiveness Current Visit: Yes Status: Acute (3) DONALD (acute kidney injury) Current Visit: Yes Status: Acute Code(s): N17.9 - ACUTE KIDNEY FAILURE, UNSPECIFIED (4) Pleural effusion Current Visit: Yes Status: Acute Code(s): J90 - PLEURAL EFFUSION, NOT ELSEWHERE CLASSIFIED (5) CHF (congestive heart failure) Current Visit: Yes Status: Acute Code(s): I50.9 - HEART FAILURE, UNSPECIFIED (6) Amphetamine abuse Current Visit: Yes Status: Acute Code(s): F15.10 - OTHER STIMULANT ABUSE, UNCOMPLICATED (7) Elevated troponin Current Visit: Yes Status: Acute Code(s): R79.89 - OTHER SPECIFIED ABNORMAL FINDINGS OF BLOOD CHEMISTRY (8) Depression Current Visit: No Status: Chronic Qualifiers: Depression Type: major depressive disorder Major depression recurrence: recurrent Active/Remission status: currently active Major depression episode severity: moderate Qualified Code(s): F33.1 - Major depressive disorder, recurrent, moderate Code(s): F32.A - DEPRESSION, UNSPECIFIED (9) Edema of extremities Current Visit: Yes Status: Acute Code(s): R60.0 - LOCALIZED EDEMA (10) Elevated CK Current Visit: Yes Status: Acute (11) D-dimer, elevated Current Visit: Yes Status: Acute Code(s): R79.89 - OTHER SPECIFIED ABNORMAL FINDINGS OF BLOOD CHEMISTRY (12) Obesity (BMI 30-39.9) Current Visit: Yes Status: Acute Assessment & Plan: (1) Pneumonia Current Visit: Yes Status: Acute Assessment & Plan: - CT angiography IMPRESSION: 1. No hemodynamically significant stenosis, evidence of aneurysm, or vascular malformation. 2. Mild right-sided pleural effusion. 3. Scattered areas of groundglass density in bilateral lungs along with subtle nodularity in the right upper lobe. 4. Multiple enlarged mediastinal lymph nodes. 5. Overall findings are suggestive of pulmonary infection. Clinical correlation and further evaluation with CT chest is advised if clinically indicated. - Antibiotics, breathing txs, steroids - O2 2lNC 100%- wean Code(s): J18.9 - PNEUMONIA, UNSPECIFIED ORGANISM (2) Unresponsiveness Current Visit: Yes Status: Acute Assessment & Plan: - 2:2 meth use - bustamante - neuro eval - CT head negative for acute concern - MRI brain pending - pt starting to wake up this afternoon and talking. - ST eval 01/13 - Bust[facility] d/c'd - MRI brain pending- machine broke yesterday and being fixed today - Continued left arm weakness - more responsive today (3) DONALD (acute kidney injury) Current Visit: Yes Status: Acute Assessment & Plan: - creat 1.58- Baseline 1.11- normal - IVF Code(s): N17.9 - ACUTE KIDNEY FAILURE, UNSPECIFIED (4) Pleural effusion Current Visit: Yes Status: Acute Assessment & Plan: - as seen on CT 2:2 CHF - echo - lasix - 2lNC 100%- wean - IS 01/13 - lasix increased by cardiology - 2lNC 100%- wean Code(s): J90 - PLEURAL EFFUSION, NOT ELSEWHERE CLASSIFIED (5) CHF (congestive heart failure) Current Visit: Yes Status: Acute Assessment & Plan: - 2lNC - Echo EF per electroneurodiagnostic technician 37.5 - BNP 9530 - edema of BLLE, and left arm, abd. edema. - lasix IV BID - EF 37.5% per electroneurodiagnostic technician - cardiology consult - Start coreg 3.125mg BID - Continue lasix - Consider adding lisinopril if DONALD improves 01/13 - Increased coreg due to ST - Card consult today - Per cardiology- increase lasix to 40mg BID, f/u in 1 week with cardiology - echo sent to [facility] to read Code(s): I50.9 - HEART FAILURE, UNSPECIFIED (6) Amphetamine abuse Current Visit: Yes Status: Acute Assessment & Plan: - Per lab results - advised cessation - echo 01/13 - refused rehab Code(s): F15.10 - OTHER STIMULANT ABUSE, UNCOMPLICATED (7) Elevated troponin Current Visit: Yes Status: Acute Assessment & Plan: - trop 0.657, 0.504, 0.438- trending down - trend - echo- ef per electroneurodiagnostic technician 37.5 - 2:2 CHF exacerbation 01/13 - cardiology consulted - awaiting official read of echo by cardiology Code(s): R79.89 - OTHER SPECIFIED ABNORMAL FINDINGS OF BLOOD CHEMISTRY (8) Depression Current Visit: No Status: Chronic Qualifiers: Depression Type: major depressive disorder Major depression recurrence: recurrent Active/Remission status: currently active Major depression episode severity: moderate Qualified Code(s): F33.1 - Major depressive disorder, recurrent, moderate Assessment & Plan: - not taking any meds - denies homicidal or suicidal ideation. Code(s): F32.A - DEPRESSION, UNSPECIFIED (9) Edema of extremities Current Visit: Yes Status: Acute Assessment & Plan: - venous duplex BLLE negative - VD of LUE pending 01/13 -VD of BLLE and LUE negative - UNNA boots to BLLE by PT - elevate LUE and BLLE to decrease edema Code(s): R60.0 - LOCALIZED EDEMA (10) Elevated CK Current Visit: Yes Status: Acute Assessment & Plan: - 2:2 meth use, pneumonia, DONALD - unable to give IVF due to edema and CHF 01/13 - repeat Ck pending (11) D-dimer, elevated Current Visit: Yes Status: Acute Assessment & Plan: - d-dimer 1.47 - Therapeutic lovenox - Consider CTA if DONALD improves - not awake enough to do VQ scan at this time. 01/13 - CTA 01/13 Impression: 1. Negative pulmonary embolus. 2. Bilateral patchy groundglass airspace disease. 3. Cardiomegaly and small right/tiny left effusions. Rule out cardiac decompensation/CHF versus fluid overload. - lovenox changed to daily Code(s): R79.89 - OTHER SPECIFIED ABNORMAL FINDINGS OF BLOOD CHEMISTRY (12) Obesity (BMI 30-39.9) Current Visit: Yes Status: Acute Assessment & Plan: - heart healthy diet when able to eat VTE: Lovenox Next of KIN:friend D/C plan: 1-2 days Code status: Full Code(s): E66.9 - OBESITY, UNSPECIFIED Code(s): E66.9 - OBESITY, UNSPECIFIED
--- NOTE | 2024-01-13 13:50 | XRAY ---
Indication: Altered mental status. Change in loss of consciousness. Sagittal, coronal, and axial MRI brain performed without contrast using T1, T2, FLAIR, diffusion, and ADC sequences. Comparison: None Age-appropriate global atrophy. Left cerebral hemisphere demonstrates multifocal areas of wedge-shaped restricted signal along MCA distribution favoring acute ischemia. Largest focus left parietal lobe measuring at least 2.4 x 3.3 cm in greatest axial dimension. No acute intracranial hemorrhage, abnormal extra-axial fluid collection, or mass effect. Fourth ventricle is midline without hydrocephalus. 7/8 cranial nerve complex bilaterally symmetric. Normal flow-void signal within the major interest cerebral circulation. Normal appearing craniocervical junction and sella turcica. Mild mucosal thickening right maxillary/right ethmoid sinuses with right maxillary sinus fluid leveling. Impression: 1. Multifocal areas of acute ischemia along left MCA distribution. No acute hemorrhage/mass effect. 2. Incidental paranasal sinus disease. Comment: Telephone report given to ordering clinician, Lynsey Amin at 1344 hrs on Jan 13, 2024
[2024-01-13] MEDS: Lasix 40 MG/4 ML IV SCH (17:28)
--- NOTE | 2024-01-13 19:43 | TM.IN ---
Tele-Medicine Incident Note - Incident Note Tel-Medicine Incident Note: 01/13/241940 "LexieeenandexMILAGROS [place] andhavediscussed pertinent aspects of their care with Lynsey Malone NP,and agree with the history, physical exam (any modifications based on my personal exam will be noted below), assessment, and plan as outlined in original note. Please see immediately below for my summary of findings and additional assessment and plan along with any meaningful corrections/explanations to the Subjective/Objective portions of the GORDON note will be noted." Patient is more alert and conversant today MRI demonstrated areas concerning for acute stroke/infarct. Appreciate teleneurology consult. Antibiotics for pneumonia Cardiology consulted for possible cardiomyopathy/CHF. My portion of the encounter took place via telemedicine. Telemedicine Encounter - Telemedicine Encounter Telemedicine Encounter: The entirety of this encounter was performed via Telemedicine"
[2024-01-14 05:28] LABS: Hematocrit 35.3 % (42-50); Hemoglobin 11.2 g/dL (12.5-18.0); Mean Cell Volume 86.9 fL (78-100); Mean Corpuscular Hemoglobin 27.6 pg (26-32); Mean Corpuscular Hgb Concent. 31.7 g/dL (32-36); Mean Platelet Volume 9.8 fL (7.5-11.0); Platelet Count 333 x10^3/uL (150-450); Red Blood Count 4.06 x10^6/uL (4.1-5.6); Red Cell Distribution Width 14.6 % (11.5-14.0)
[2024-01-14 06:35] LABS: ALBUMIN 3.4 g/dL (3.5-5.0); ANION GAP 14.2 MEQ/L (5-15); BILIRUBIN,TOTAL 0.5 mg/dL (0.2-1.3); Calcium 9.1 mg/dL (8.4-10.2); Creatinine 1 1.25 mg/dL (0.66-1.25); EST GLOMERULAR FILTRATION RATE 68.9 ML/MIN; Potassium 4.4 mmol/L (3.5-5.1); Total Protein 6.1 g/dL (6.3-8.2)
[2024-01-14 07:35] VITALS: O2SAT 98
[2024-01-14] MEDS: ENOXAPARIN SODIUM SQ SCH (09:24)
[2024-01-14] MEDS: ECOTRIN 81 MG PO SCH (09:25)
--- NOTE | 2024-01-14 12:53 | PCM.DS ---
Discharge Summary Date of Admission: 01/12/24 08:56 Date of Discharge: 01/14/24 Admitting Physician: BYRON PERALTA MD Consults: Consults on Case 01/12/24 15:07 Cardiology Consult [Notify Internal Controls Manager of Admit] ROUTINE 01/13/24 15:00 Tele-Health Consult ROUTINE Primary Care Provider: DIAZ RAMIREZ Allergies Allergies Penicillins Allergy (Verified 01/12/24 03:12) Hospital Summary - Hospital Course Hospital Course: 01/12/24 is a 53 year old male with PMHX of hyperlipidemia. CHF, anxiety,HTN and GERD. He was brought to ED by EMS for right upper extremity weakness and incomprehensible speech. Last known normal was 02:15 by pt's . EMS report states that pt has hx of drug abuse including multiple illegal substances, has been poorly compliant w/ his daily meds per his . Pt is unable to respond to questions or follow commands, does withdraw to pain. Pt is maintaining airway, saturating > 95% on 2L NC. Baseline is room air. CT negative for acute process. CTA + for right pleural effusion, and appears to have an infection. Will treat for pneumonia. Antibiotics started. He has +3 pitting edema of BLLE and LUE. Echo ordered. Trops trending down. CK 472- Continue IVF. Urine + for meth. He does have DONALD. Neurology consulted in ER. MRI brain pending. Per nurse pt has n ot been taking any home meds there fore none in computer to restart. 01/13/24 Pt resting in bed. He is much more awake and alert today. Cardiology consulted today with recommendations and orders. Awaiting MRI of brain as machine went down yesterday. It has since been fixed today. CTA pending for elevated D-dimer eval. DONALD improved. He is refusing drug rehab. Continue antibiotics for pneumonia. Heart rate increase so coreg increased. He deneis CP, SOB, abd. pain, N/V/D. He continues to have BLLE and left arm edema. Unna boots to be placed by PT on BLLE. Legs and arm to be elevated. 01/14/24 Pt resting in bed. He did well with PT and will not need rehab placement. Discussed he will need f/u with cardiology, neurology, and PCP OP. Appointments made. He refuses HHC. He continues to have BLLE and left arm edema. Encouraged to elevate and continue compression stockings at home. He denies CP, SOB, abd. pain, N/V/D. - Vitals & Intake/Output Vital Signs: Vital Signs Temperature 96.1 F 01/14/24 12:00 Pulse Rate 93 H 01/14/24 12:00 Respiratory Rate 16 01/14/24 12:00 Blood Pressure 101/57 01/14/24 12:00 O2 Sat by Pulse Oximetry 98 01/14/24 12:00 Intake & Output: Intake & Output 01/12/24 01/13/24 01/14/24 01/15/24 11:59 11:59 11:59 11:59 Intake Total 660 1260 Output Total 60 2650 2550 Balance - Weight 104.9 kg 101.1 kg - Lab Result Diagrams: 01/14/24 04:40 01/14/24 04:40 Lab Results-Last 24 Hrs: Lab Results-Last 24 Hours 01/14/24 01/14/24 01/14/24 Range/Units 04:40 04:40 04:40 WBC 10.0 (4.0-10.5) x10^3/uL RBC 4.06 L (4.1-5.6) x10^6/uL Hgb 11.2 L (12.5-18.0) g/dL Hct 35.3 L (42-50) % MCV 86.9 (78-100) fL MCH 27.6 (26-32) pg MCHC 31.7 L (32-36) g/dL RDW 14.6 H (11.5-14.0) % Plt Count 333 (150-450) x10^3/uL MPV 9.8 (7.5-11.0) fL Sodium 134 L (137-145) mmol/L Potassium 4.4 (3.5-5.1) mmol/L Chloride 105 (98-107) mmol/L Carbon Dioxide 20 L (22-30) mmol/L Anion Gap 14.2 (5-15) MEQ/L BUN 25 H (9-20) mg/dL Creatinine 1.25 (0.66-1.25) mg/dL Estimated GFR 68.9 ML/MIN Glucose 147 H (74-106) mg/dL Hemoglobin A1c (4.5-6.0) % Calcium 9.1 (8.4-10.2) mg/dL Total Bilirubin 0.50 (0.2-1.3) mg/dL AST 30 (17-59) U/L ALT 61 H (0-50) U/L Alkaline Phosphatase 56 (38-126) U/L Creatine Kinase 111 (55-170) U/L Serum Total Protein 6.1 L (6.3-8.2) g/dL Albumin 3.4 L (3.5-5.0) g/dL 01/14/24 Range/Units 04:40 WBC (4.0-10.5) x10^3/uL RBC (4.1-5.6) x10^6/uL Hgb (12.5-18.0) g/dL Hct (42-50) % MCV (78-100) fL MCH (26-32) pg MCHC (32-36) g/dL RDW (11.5-14.0) % Plt Count (150-450) x10^3/uL MPV (7.5-11.0) fL Sodium (137-145) mmol/L Potassium (3.5-5.1) mmol/L Chloride (98-107) mmol/L Carbon Dioxide (22-30) mmol/L Anion Gap (5-15) MEQ/L BUN (9-20) mg/dL Creatinine (0.66-1.25) mg/dL Estimated GFR ML/MIN Glucose (74-106) mg/dL Hemoglobin A1c 6.20 H (4.5-6.0) % Calcium (8.4-10.2) mg/dL Total Bilirubin (0.2-1.3) mg/dL AST (17-59) U/L ALT (0-50) U/L Alkaline Phosphatase (38-126) U/L Creatine Kinase (55-170) U/L Serum Total Protein (6.3-8.2) g/dL Albumin (3.5-5.0) g/dL Micro Results-Entire Visit: Microbiology 01/12/24 03:29 Urine Culture - Final Urine, Void NO GROWTH - Radiology Exams Ordered Rad Exams-Entire Visit: Radiology Procedures Category Date Time Status CHEST WITH CONTRAST [CT] Routine Exams 01/13/24 08:11 Completed MRI BRAIN W/O CONTRAST [MRI] Routine Exams 01/13/24 08:00 Completed VENOUS BILATERAL EXTREMITY [US] Routine Exams 01/12/24 12:49 Completed VENOUS UNILAT/LIMITED EXTREMIT [US] Routine Exams 01/12/24 15:48 Completed - Procedures and Test Procedures and Tests throughout Hospitalization: Therapy Orders & Screens 01/12/24 08:43 Oxygen Nasal Cannula 2 lpm Comment: 01/12/24 13:48 ST Eval & Treat ( Order) .as ordered Comment: Physician Instructions: Reason For Exam: Evaluate: stroke like sxs- swallow eval Treat: Yes Reason for Eval: swalloe eval Diagnosis: flaccid hemiplegia, meth abuse, elevated troponins 01/12/24 15:27 Incentive Spirometry Q1H Comment: Diagnosis: flaccid hemiplegia, meth abuse, elevated troponins 01/13/24 09:34 PT Eval & Treat ( Order) ONCE Reason for Eval:: unna Boots BLLE Diagnosis: flaccid hemiplegia, meth abuse, elevated troponins 01/14/24 07:59 RT Miscellaneous Order ROUTINE Comment: Physician Instructions: Reason For Exam: eval for home O2 Diagnosis: PNEUMONIA, UNRESPONSIVENESS, CHF Discharge Exam General Appearance: no apparent distress, alert, obese Neurologic Exam: alert, oriented x 3, cooperative, normal mood/affect, nml cerebellar function, sensation nml, No motor deficits Eye Exam: PERRL, EOMI, eyes nml inspection Ears, Nose, Throat Exam: normal ENT inspection, pharynx normal, moist mucous membranes Neck Exam: normal inspection, non-tender, supple, full range of motion Respiratory Exam: normal breath sounds, lungs clear, No respiratory distress Cardiovascular Exam: regular rate/rhythm, normal heart sounds Gastrointestinal/Abdomen Exam: soft, No tenderness, No mass Male Genitalia Exam: deferred Rectal Exam: deferred Back Exam: normal inspection, normal range of motion, No CVA tenderness, No vertebral tenderness Extremity Exam: normal inspection, normal range of motion Skin Exam: normal color, warm, dry Final Diagnosis/Problem List - Final Discharge Diagnosis/Problem (1) Stroke Current Visit: Yes Status: Acute Assessment & Plan: - Brain MRI 01/13 Impression: 1. Multifocal areas of acute ischemia along left MCA distribution. No acute hemorrhage/mass effect. 2. Incidental paranasal sinus disease. - Neurology consulted with recs - asa 81 mg daily started. - We are unable to do bubble study at this facility with echo - cardiology OP appointment made for f/u. - Will start lipitor 40mg daily Code(s): I63.9 - CEREBRAL INFARCTION, UNSPECIFIED (2) Pneumonia Current Visit: Yes Status: Acute Assessment & Plan: - CT angiography IMPRESSION: 1. No hemodynamically significant stenosis, evidence of aneurysm, or vascular malformation. 2. Mild right-sided pleural effusion. 3. Scattered areas of groundglass density in bilateral lungs along with subtle nodularity in the right upper lobe. 4. Multiple enlarged mediastinal lymph nodes. 5. Overall findings are suggestive of pulmonary infection. Clinical correlation and further evaluation with CT chest is advised if clinically indicated. - Antibiotics, breathing txs, steroids - O2 2lNC 100%- wean 01/14 - RT eval for home o2 - did not qualify - RA ` Code(s): J18.9 - PNEUMONIA, UNSPECIFIED ORGANISM (3) Unresponsiveness Current Visit: Yes Status: Resolved Assessment & Plan: - 2:2 meth use, stroke - [facility] - neuro eval - CT head negative for acute concern - MRI brain pending - pt starting to wake up this afternoon and talking. - ST eval 01/13 - [facility] d/c'd - MRI brain pending- machine broke yesterday and being fixed today - Continued left arm weakness - more responsive today 01/14 - awake and alert- resolved (4) DONALD (acute kidney injury) Current Visit: Yes Status: Resolved Assessment & Plan: - resolved Code(s): N17.9 - ACUTE KIDNEY FAILURE, UNSPECIFIED (5) Pleural effusion Current Visit: Yes Status: Acute Assessment & Plan: - as seen on CT 2:2 CHF - echo - lasix - 2lNC 100%- wean - IS 01/13 - lasix increased by cardiology - 2lNC 100%- wean Code(s): J90 - PLEURAL EFFUSION, NOT ELSEWHERE CLASSIFIED (6) CHF (congestive heart failure) Current Visit: Yes Status: Acute Assessment & Plan: - 2lNC - Echo EF per information technology administrator 37.5 - BNP 9530 - edema of BLLE, and left arm, abd. edema. - lasix IV BID - EF 37.5% per information technology administrator - cardiology consult - Start coreg 3.125mg BID - Continue lasix - Consider adding lisinopril if DONALD improves 01/13 - Increased coreg due to ST - Card consult today- recommendations in place - Per cardiology- increase lasix to 40mg BID, f/u in 1 week with cardiology - echo sent to [facility] to read Code(s): I50.9 - HEART FAILURE, UNSPECIFIED (7) Amphetamine abuse Current Visit: Yes Status: Acute Assessment & Plan: - Per lab results - advised cessation - echo 01/13 - refused rehab Code(s): F15.10 - OTHER STIMULANT ABUSE, UNCOMPLICATED (8) Elevated troponin Current Visit: Yes Status: Acute Assessment & Plan: - trop 0.657, 0.504, 0.438- trending down - trend - echo- ef per information technology administrator 37.5 - 2:2 CHF exacerbation 01/13 - cardiology consulted - awaiting official read of echo by cardiology Code(s): R79.89 - OTHER SPECIFIED ABNORMAL FINDINGS OF BLOOD CHEMISTRY (9) Depression Current Visit: No Status: Chronic Assessment & Plan: - not taking any meds - denies homicidal or suicidal ideation. Code(s): F32.A - DEPRESSION, UNSPECIFIED (10) Edema of extremities Current Visit: Yes Status: Acute Assessment & Plan: - venous duplex BLLE negative - VD of LUE pending 01/13 -VD of BLLE and LUE negative - compression stockings BLLE by PT - elevate LUE and BLLE to decrease edema Code(s): R60.0 - LOCALIZED EDEMA (11) Elevated CK Current Visit: Yes Status: Acute Assessment & Plan: - 2:2 meth use, pneumonia, DONALD - unable to give IVF due to edema and CHF 01/13 - repeat Ck 233 01/14 - CK 111- WNL (12) D-dimer, elevated Current Visit: Yes Status: Acute Assessment & Plan: - d-dimer 1.47 - Therapeutic lovenox - Consider CTA if DONALD improves - not awake enough to do VQ scan at this time. 01/13 - CTA 01/13 Impression: 1. Negative pulmonary embolus. 2. Bilateral patchy groundglass airspace disease. 3. Cardiomegaly and small right/tiny left effusions. Rule out cardiac decompensation/CHF versus fluid overload. - lovenox changed to daily Code(s): R79.89 - OTHER SPECIFIED ABNORMAL FINDINGS OF BLOOD CHEMISTRY (13) Obesity (BMI 30-39.9) Current Visit: Yes Status: Acute Assessment & Plan: - heart healthy diet Code(s): E66.9 - OBESITY, UNSPECIFIED - Discharge Discharge Date: 01/14/24 Disposition: Home, Self-Care Condition: Stable Prescriptions: New Atorvastatin Calcium [Lipitor 40Mg] 40 mg PO DAILY 30 Days #30 tablet Aspirin EC 81 mg [Ecotrin 81 mg] 81 mg PO DAILY 30 Days #30 tablet Additional Instructions: Referral sent to [facility]. Office will call you with an appointment. Follow up with: CHARLES DAO FNP [NON-STAFF PHY W/O PRIVILEGES] - 01/22/24 9:00 am (Please come early with ID and insurance.) ANA CRISTINA HUGHES MD [CONSULTING PHYSICIAN] - 01/21/24 9:00 am
[2024-01-14 15:59] VITALS: BP 122/69; PULSE 86; RESP 18; TEMP 97.3
[2024-01-14] MEDS ORDERED: TROUGH DRUG LEVELS IJ ONE (17:30)
== END 2024-01-14 19:25 | disposition home or self-care (01) | DRG 64 ==
LOC: ED 03:09 → OBSVTOIN 08:56 → MED SURG 08:56
PROVIDERS: ADMIT Internal Medicine; ATTEND Internal Medicine
PROC: 2W1MX6Z Compression of Left Lower Extremity using Pressure Dressing (ICD-10-PCS; principal; 2024-01-13)
PROC: 2W1LX6Z Compression of Right Lower Extremity using Pressure Dressing (ICD-10-PCS; 2024-01-13)
DX: I63.9 Cerebral infarction, unspecified (principal); J18.9 Pneumonia, unspecified organism; N17.9 Acute kidney failure, unspecified; J90 Pleural effusion, not elsewhere classified; R40.4 Transient alteration of awareness; I11.0 Hypertensive heart disease with heart failure; I50.9 Heart failure, unspecified; F15.90 Other stimulant use, unspecified, uncomplicated; R79.89 Other specified abnormal findings of blood chemistry; F32.A Depression, unspecified; R60.0 Localized edema; R74.8 Abnormal levels of other serum enzymes; E66.9 Obesity, unspecified; E78.5 Hyperlipidemia, unspecified; F41.9 Anxiety disorder, unspecified; F17.200 Nicotine dependence, unspecified, uncomplicated; Z20.828 Contact with and (suspected) exposure to other viral communicable diseases; Z79.899 Other long term (current) drug therapy; Z85.828 Personal history of other malignant neoplasm of skin
CPT/HCPCS: 0241U; 29580; 36415; 36600; 51702; 70450; 70496; 70498; 70551; 71045; 71260; 80053; 80307; 81001; 82077; 82375; 82550; 82803; 82947; 83036; 83605; 83880; 84484; 85025; 85027; 85379; 85610; 85730; 87086; 92610; 93306; 93970; 93971; 94760; 97161; 97530; 99285; 99291; 99292; J1650; J1940; J1956; J2920; Q3014; A9270-GY; J3370